=== PATIENT | female | born 1980 | race Caucasian/White ===

== ENCOUNTER 2018-10-25 13:25 | Day surgery (SDC) | payer OTHER ==
[2018-10-25] MEDS ORDERED: Xylocaine 1% Vial 30 ML PF IJ ONE (13:26)
[2018-10-25] MEDS ORDERED: Sodium Chloride 0.9(Preservative Free) 10 ML IJ ONE (13:26)
[2018-10-25] MEDS ORDERED: Marcaine 0.5% SDV 10 ML IJ ONE (13:26)
[2018-10-25] MEDS ORDERED: Ketamine HCl 50 MG/ML IJ ONE (13:26)
[2018-10-25] MEDS ORDERED: DIPRIVAN 200 MG/20 ML IV ONE (13:26)
[2018-10-25] MEDS ORDERED: LIDOCAINE HCL 2% 100 MG/5 ML IJ ONE (13:26)
[2018-10-25] MEDS ORDERED: Lactated Ringers 1,000 ML IV ONE (14:26)
--- NOTE | 2018-10-25 17:00 | XRAY ---
Indication: Right L4-S1 MARAL. Intraoperative fluoroscopy was provided for 32 seconds. 2 digital spot images submitted for interpretation demonstrates posterior needle tips projecting over the expected course of the right L4-L5 nerve roots. Small amount of contrast injected for needle tip placement. Correlate with intraoperative findings/report.
--- NOTE | 2018-10-25 17:04 | XRAY ---
32 seconds of fluoroscopy was used in surgery for right L4-L5 and L5-S1 MARAL.
== END 2018-10-25 15:58 | disposition home or self-care (01) ==
LOC: SDC-PAIN 13:25
PROVIDERS: ATTEND Psychiatry & Neurology Pain Medicine
DX: M54.16 Radiculopathy, lumbar region (principal); E06.3 Autoimmune thyroiditis; E78.5 Hyperlipidemia, unspecified; G47.00 Insomnia, unspecified; K21.9 Gastro-esophageal reflux disease without esophagitis; Z79.899 Other long term (current) drug therapy
CPT/HCPCS: 64483; 64484; 72020; 77003; J2001; J2704; Q9967

== ENCOUNTER 2019-08-04 12:05 | Emergency (ER) | payer OTHER ==
[2019-08-04 12:18] VITALS: O2SAT 98
--- NOTE | 2019-08-04 12:33 | ERPHSYRPT ---
- History of Present Illness Time Seen by Provider: 08/04/19 12:32 Source: patient Exam Limitations: no limitations Patient Subjective Stated Complaint: Pt has 0.5 cm wound to her right posterior calf with reddedned area measuring 4x5 cm, stated that she has had it for about a week but has really began to hurt for the past couple of days, pt has scarred wounds scattered over her arms and legs that she states are just old sores that scarred Triage Nursing Assessment: Pt walked into the ER, tachycardic, rates pain 8/10 on right leg, unsure how she got the wound but thinks it might be a spider bite Physician History: Pt has 0.5 cm wound to her right posterior calf with reddedned area measuring 4x5 cm, stated that she has had it for about a week but has really began to hurt for the past couple of days, pt has scarred wounds scattered over her arms and legs that she states are just old sores that scarred Timing/Duration: week(s) Location: extremities Associated Symptoms: denies symptoms Allergies/Adverse Reactions: Penicillins Allergy (Intermediate, Verified 08/04/19 12:18) Rash Home Medications: Esomeprazole Magnesium [Nexium] 1 tab PO QPM 09/27/17 [History] Metoprolol Tartrate 1 tab PO BID 09/27/17 [History] Quetiapine Fumarate [Seroquel Xr] 1 tab PO QHS 09/27/17 [History] Tizanidine HCl 4 mg [Zanaflex 4 MG] 3 tab PO QHS 09/27/17 [History] Ergocalciferol (Vitamin D2) [Vitamin D] 1 tab PO UD 09/30/17 [History] Levothyroxine Sodium [Tirosint] 200 mcg PO DAILY 08/04/19 [History] Liothyronine Sodium 5 mcg PO DAILY 08/04/19 [History] Hx Tetanus, Diphtheria Vaccination/Date Given: No - Review of Systems Constitutional: No Fever, No Chills Eyes: No Symptoms Ears, Nose, & Throat: No Symptoms Respiratory: No Cough, No Dyspnea Cardiac: No Chest Pain, No Edema, No Syncope Abdominal/Gastrointestinal: No Abdominal Pain, No Nausea, No Vomiting, No Diarrhea Genitourinary Symptoms: No Dysuria Musculoskeletal: No Back Pain, No Neck Pain Skin: Induration, Skin Lesions, No Rash Neurological: No Dizziness, No Focal Weakness, No Sensory Changes Psychological: No Symptoms Endocrine: No Symptoms All Other Systems: Reviewed and Negative - Past Medical History Pertinent Past Medical History: Yes Neurological History: Seizures ENT History: No Pertinent History Cardiac History: Arrhythmia Respiratory History: No Pertinent History Endocrine Medical History: Hypothyroidism, Other Musculoskeletal History: No Pertinent History GI Medical History: GERD, Gallbladder Disease History: No Pertinent History Psycho-Social History: Depression, Anxiety Female Reproductive Disorders: No Pertinent History Other Medical History: had a seizure when was on too much medications with seratonine, keri's - Past Surgical History Past Surgical History: Yes Neuro Surgical History: No Pertinent History Cardiac: No Pertinent History Respiratory: No Pertinent History Gastrointestinal: Cholecystectomy Genitourinary: No Pertinent History Musculoskeletal: Other Female Surgical History: Tubal Ligation Other Surgical History: pt has scoliosis - Social History Smoking Status: Current every day smoker Exposure to second hand smoke: Yes Drug Use: none Patient Lives Alone: No - Female History Hx Now: No (tubal) - Nursing Vital Signs Nursing Vital Signs: Initial Vital Signs Temperature 97.4 F 08/04/19 12:08 Pulse Rate 111 H 08/04/19 12:08 Blood Pressure 130/91 08/04/19 12:08 O2 Sat by Pulse Oximetry 98 08/04/19 12:08 Pain Scale Pain Intensity 8 - Physical Exam General Appearance: no apparent distress, alert Eye Exam: PERRL/EOMI, eyes nml inspection Ears, Nose, Throat Exam: normal ENT inspection, pharynx normal, moist mucous membranes Neck Exam: normal inspection, non-tender, supple, full range of motion Respiratory Exam: normal breath sounds, lungs clear, No respiratory distress Cardiovascular Exam: regular rate/rhythm, normal heart sounds Gastrointestinal/Abdomen Exam: soft, mass, No tenderness Back Exam: normal inspection, normal range of motion, No CVA tenderness, No vertebral tenderness Extremity Exam: normal inspection, normal range of motion Neurologic Exam: alert, oriented x 3, cooperative, normal mood/affect, sensation nml, No motor deficits Skin Exam: embolic lesions SpO2: 98 - Course Nursing assessment & vital signs reviewed: Yes Ordered Tests: Active Orders 24 hr Category Date Time Status BLOOD CULTURE Stat Lab 08/04/19 12:37 Received CBC W DIFF Stat Lab 08/04/19 12:30 Completed CMP Stat Lab 08/04/19 12:30 Completed Lactic Acid Stat Lab 08/04/19 12:16 Completed Manual Differential NC Stat Lab 08/04/19 12:30 Completed UA W/RFX UR CULTURE Stat Lab 08/04/19 12:16 Uncollected Medication Summary Discontinued Medications Generic Name Dose Route Start Last Admin Trade Name Freq PRN Reason Stop Dose Admin Ceftriaxone Sodium 1,000 mg 08/04/19 12:38 08/04/19 12:46 Rocephin 1000 Mg Inj IM 08/04/19 12:39 1,000 mg STAT ONE Administration Ceftriaxone Sodium Confirm 08/04/19 12:44 Rocephin 1000 Mg Inj Administered 08/04/19 12:45 Dose 1,000 mg .ROUTE .STK-MED ONE Lidocaine HCl Confirm 08/04/19 12:44 Xylocaine 1% Hcl 20 Ml Mdv Administered 08/04/19 12:45 Dose 2 ml .ROUTE .STK-MED ONE Lab/Rad Data: Laboratory Result Diagrams 08/04/19 12:30 08/04/19 12:30 Laboratory Results 08/04/19 08/04/19 08/04/19 Range/Units 12:30 12:30 12:16 WBC 13.8 H (4.0-10.5) K/mm3 RBC 4.14 (4.1-5.4) M/mm3 Hgb 12.3 (12.0-16.0) gm/dl Hct 37.4 (35-47) % MCV 90.3 (78-100) fl MCH 29.7 (26-32) pg MCHC 32.9 (32-36) g/dl RDW 13.7 (11.5-14.0) % Plt Count 324 (150-450) K/mm3 MPV 9.7 H (6-9.5) fl Segmented Neutrophils 72 H (36.0-66.0) % Lymphocytes (Manual) 22 L (24-44) % Monocytes (Manual) 6 (0.0-12.0) % Platelet Estimate NORMAL (NORMAL) RBC Morphology NORMAL Sodium 137 (137-145) mmol/L Potassium 3.3 L (3.5-5.1) mmol/L Chloride 104 (98-107) mmol/L Carbon Dioxide 23 (22-30) mmol/L Anion Gap 14.3 (5-15) MEQ/L BUN 5 L (7-17) mg/dL Creatinine 0.60 (0.52-1.04) mg/dL Estimated GFR > 60.0 ML/MIN Glucose 108 H (74-106) mg/dL Lactic Acid 1.3 (0.4-2.0) Calcium 9.5 (8.4-10.2) mg/dL Total Bilirubin 0.50 (0.2-1.3) mg/dL AST 23 (14-36) U/L ALT 19 (0-35) U/L Alkaline Phosphatase 104 (38-126) U/L Serum Total Protein 7.9 (6.3-8.2) g/dL Albumin 4.3 (3.5-5.0) g/dL - Progress Progress: unchanged Counseled pt/family regarding: lab results, diagnosis, need for follow-up - Departure Departure Disposition: Home Clinical Impression: Cellulitis and abscess of leg, except foot Condition: Stable Critical Care Time: No Referrals: NADEEM GUZMAN MD [Primary Care Provider] - Instructions: Cellulitis and Erysipelas (Skin Infections), Cellulitis (Skin Infection), Adult (DC) Additional Instructions: Discharge/Care Plan OLGA LIDIA RICO was seen on 08/04/19 in the Emergency Room. The patient was counseled regarding Diagnosis,Lab results, Imaging studies, need for follow up and when to return to the Emergency Room. Prescriptions given: Discharge Note I have spoken with the patient and/or caregivers. I have explained the patient' s condition, diagnosis and treatment plan based on the information available to me at this time. I have answered the patient's and/or caregiver's questions and addressed any concerns. The patient and/or caregivers have as good understanding of the patient's diagnosis, condition and treatment plan as can be expected at this point. The vital signs have been stable. The patient's condition is stable and appropriate for discharge from the emergency department. The patient will pursue further outpatient evaluation with the primary care physician or other designated or consulting physician as outlined in the discharge instructions. The patient and/or caregivers are agreeable to this plan of care and follow-up instructions have been explained in detail. The patient and/or caregivers have received these instruction. The patient/and or caregivers are aware that any significant change in condition or worsening of symptoms should prompt an immediate return to this or the closest emergency department or call 911. Prescriptions: Mupirocin [Bactroban OINTMENT] 0 gm TOP BID #30 tube Doxycycline Hyclate 100 mg PO BID #20 tablet
[2019-08-04] MEDS ORDERED: Rocephin 1000 MG INJ IM ONE (12:38)
[2019-08-04] MEDS ORDERED: Rocephin 1000 MG INJ ONE (12:44)
[2019-08-04] MEDS ORDERED: XYLOCAINE 1% HCL 20 ML MDV ONE (12:44)
[2019-08-04 12:51] LABS: Hematocrit 37.4 % (35-47); Hemoglobin 12.3 gm/dl (12.0-16.0); Mean Cell Volume 90.3 fl (78-100); Mean Corpuscular Hemoglobin 29.7 pg (26-32); Mean Corpuscular Hgb Concent. 32.9 g/dl (32-36); Mean Platelet Volume 9.7 fl (6-9.5); Platelet Count 324 K/mm3 (150-450); Red Blood Count 4.14 M/mm3 (4.1-5.4); Red Cell Distribution Width 13.7 % (11.5-14.0); White Blood Count 13.8 K/mm3 (4.0-10.5)
[2019-08-04 12:56] LABS: ALBUMIN 4.3 g/dL (3.5-5.0); ALKALINE PHOSPHATASE 104 U/L (38-126); ANION GAP 14.3 MEQ/L (5-15); BLOOD UREA NITROGEN 5 mg/dL (7-17); CHLORIDE 104 mmol/L (98-107); Calcium 9.5 mg/dL (8.4-10.2); Carbon Dioxide 23 mmol/L (22-30); Glucose 108 mg/dL (74-106); Potassium 3.3 mmol/L (3.5-5.1); SGOT/AST 23 U/L (14-36); SGPT/ALT 19 U/L (0-35); SODIUM 137 mmol/L (137-145); Total Protein 7.9 g/dL (6.3-8.2)
[2019-08-04 13:11] LABS: Lymphocytes 22 % (24-44); Monocyte 6 % (0.0-12.0); Neutrophils 72 % (36.0-66.0); Total Cells Counted 100
[2019-08-04 13:12] LABS: Platelet Estimate NORMAL (NORMAL)
[2019-08-04 13:26] VITALS: BP 135/85; PULSE 70
== END 2019-08-04 13:26 | disposition home or self-care (01) ==
LOC: ED 12:05
DX: L03.115 Cellulitis of right lower limb (principal); L02.415 Cutaneous abscess of right lower limb
CPT/HCPCS: 36415; 80053; 83605; 85025; 87040; 96372; 96374; 99284; J0696

== ENCOUNTER 2019-09-12 10:20 | Day surgery (SDC) | payer OTHER ==
[2019-09-12] MEDS ORDERED: Depo-Medrol 40 MG/ML IM ONE (10:21)
[2019-09-12] MEDS ORDERED: Sodium Chloride 0.9% 10 ML FLUSH Syringe IJ ONE (10:21)
[2019-09-12] MEDS ORDERED: Ketamine HCl 50 MG/ML ONE (10:40)
[2019-09-12] MEDS ORDERED: DIPRIVAN 200 MG/20 ML IV ONE (10:40)
--- NOTE | 2019-09-12 11:58 | XRAY ---
21 seconds of fluoroscopy was used in surgery for a right L4-L5 and L5-S1 transforaminal MARAL.
--- NOTE | 2019-09-12 12:10 | XRAY ---
Indication: Right L4-S1 transforaminal MARAL. Intraoperative fluoroscopy was provided for 21 seconds. 4 digital spot images submitted for interpretation demonstrate posterior needle tips projecting over the expected course of the right L4 and L5 nerve roots. Small amount of contrast injected for needle tip placement. Correlate with intraoperative findings/report.
[2019-09-12] MEDS ORDERED: Lactated Ringers 1,000 ML IV ONE (13:09)
== END 2019-09-12 11:30 | disposition home or self-care (01) ==
LOC: SDC-PAIN 10:20
PROVIDERS: ATTEND Psychiatry & Neurology Pain Medicine
DX: M54.16 Radiculopathy, lumbar region (principal); E06.3 Autoimmune thyroiditis; E78.5 Hyperlipidemia, unspecified; G47.00 Insomnia, unspecified; K21.9 Gastro-esophageal reflux disease without esophagitis; F41.8 Other specified anxiety disorders
CPT/HCPCS: 64483; 64484; 72100; 77003; 84703; J1030; J2704; Q9966

== ENCOUNTER 2020-07-17 11:16 | Inpatient (IN) | payer OTHER ==
[2020-07-17] MEDS ORDERED: TORAdol 30 mg Injection IV ONE (11:44)
[2020-07-17] MEDS ORDERED: Zofran 4 MG/2 ML VIAL IV ONE (11:44)
[2020-07-17] MEDS ORDERED: Sodium Chloride 0.9% 1000 ML 1,000 ML IV STA (12:07)
[2020-07-17] MEDS ORDERED: TORAdol 30 mg Injection ONE (12:08)
[2020-07-17] MEDS ORDERED: Sodium Chloride 0.9% 1000 ML 1,000 ML ONE (12:08)
[2020-07-17] MEDS ORDERED: Zofran 4 MG/2 ML VIAL ONE ×2 (12:08→19:01)
--- NOTE | 2020-07-17 12:17 | ERPHSYRPT ---
- History of Present Illness Historian: patient Patient Subjective Stated Complaint: "My side has been hurting since yesterday." Triage Nursing Assessment: . Physician History: 39 yo wf w LUQ/L flank pain x 2 days. Pain 10 on scale/sharp/nothing makes better or worse. She has had N/V wo hematemesis/diarrhea/melena/hematochezia/hematuria/cough/ST but has mild dysuria. Timing/Duration: day(s) (2 days) Activities at Onset: none Quality: sharpness Abdominal Pain Onset Location: LUQ, other Pain Radiation: flank, shoulder Severity of Pain-Max: severe Severity of Pain-Current: severe Modifying Factors: Improves With: nothing Associated Symptoms: denies symptoms, back, nausea, vomiting Previous symptoms: no prior history Allergies/Adverse Reactions: Penicillins Allergy (Intermediate, Verified 08/04/19 12:18) Rash Home Medications: Esomeprazole Magnesium [Nexium] 1 tab PO QPM 09/27/17 [History] Metoprolol Tartrate 1 tab PO BID 09/27/17 [History] Quetiapine Fumarate [Seroquel Xr] 1 tab PO QHS 09/27/17 [History] Tizanidine HCl 4 mg [Zanaflex 4 MG] 3 tab PO QHS 09/27/17 [History] Ergocalciferol (Vitamin D2) [Vitamin D] 1 tab PO UD 09/30/17 [History] Levothyroxine Sodium [Tirosint] 200 mcg PO DAILY 08/04/19 [History] Liothyronine Sodium 5 mcg PO DAILY 08/04/19 [History] Mupirocin [Bactroban OINTMENT] 0 gm TOP BID PRN 07/17/20 [History] Hx Tetanus, Diphtheria Vaccination/Date Given: Yes Hx Influenza Vaccination/Date Given: Yes Travel Risk - International Travel Have you traveled outside of the country in past 3 weeks: No - Coronavirus Screening Are you exhibiting any of the following symptoms?: No Symptoms: Vomiting/Diarrhea Close contact with a COVID-19 positive Pt in past 14-21 Days: No - Review of Systems Constitutional: No Symptoms Eyes: No Symptoms Ears, Nose, & Throat: No Symptoms Respiratory: No Symptoms Cardiac: No Symptoms Abdominal/Gastrointestinal: No Symptoms, Abdominal Pain Genitourinary Symptoms: No Symptoms, Dysuria Musculoskeletal: No Symptoms Skin: No Symptoms Neurological: No Symptoms Psychological: No Symptoms Endocrine: No Symptoms Hematologic/Lymphatic: No Symptoms Immunological/Allergic: No Symptoms - Past Medical History Pertinent Past Medical History: Yes Neurological History: Seizures ENT History: No Pertinent History Cardiac History: Arrhythmia Respiratory History: No Pertinent History Endocrine Medical History: Hypothyroidism, Other Musculoskeletal History: No Pertinent History GI Medical History: GERD, Gallbladder Disease History: No Pertinent History Psycho-Social History: Depression, Anxiety Female Reproductive Disorders: No Pertinent History Other Medical History: had a seizure when was on too much medications with seratonine, keri's - Past Surgical History Past Surgical History: Yes Neuro Surgical History: No Pertinent History Cardiac: No Pertinent History Respiratory: No Pertinent History Gastrointestinal: Cholecystectomy Genitourinary: No Pertinent History Musculoskeletal: Other Female Surgical History: Tubal Ligation Other Surgical History: pt has scoliosis - Social History Smoking Status: Current every day smoker Exposure to second hand smoke: Yes Drug Use: none Patient Lives Alone: No Significant Family History: no pertinent family hx - Female History Hx Now: No - Nursing Vital Signs Nursing Vital Signs: Initial Vital Signs Temperature 98.8 F 07/17/20 11:16 Pulse Rate 124 H 07/17/20 11:16 Respiratory Rate 16 07/17/20 11:16 Blood Pressure 146/94 07/17/20 11:16 O2 Sat by Pulse Oximetry 97 07/17/20 11:16 Pain Scale Pain Intensity 8 - Physical Exam General Appearance: no apparent distress Eye Exam: PERRL/EOMI, eyes nml inspection Ears, Nose, Throat Exam: normal ENT inspection, TMs normal, pharynx normal, moist mucous membranes Neck Exam: normal inspection, non-tender, supple, full range of motion, No meningismus, No mass, No Brudzinski, No Kernig's Respiratory Exam: normal breath sounds, lungs clear, airway intact, No respiratory distress Cardiovascular Exam: tachycardia, No murmur Gastrointestinal/Abdomen Exam: soft, normal bowel sounds, tenderness (LUQ w mild guarding) Back Exam: normal inspection, No CVA tenderness Extremity Exam: normal inspection, normal range of motion Neurologic Exam: alert, oriented x 3, cooperative, starch dumper II-XII nml as tested, normal mood/affect, nml cerebellar function, sensation nml, No motor deficits, No sensory deficit Skin Exam: normal color, warm, dry Lymphatic Exam: adenopathy SpO2 Interpretation: normal SpO2: 97 O2 Delivery: Room Air - Course Nursing assessment & vital signs reviewed: Yes - CT Exams Abdomen/Pelvis CT Interpretation: Discussed w/radiologist (Kathy-pancreatic stranding) Ordered Tests: Active Orders 24 hr Category Date Time Status IV Insertion STAT Care 07/17/20 12:03 Completed ABDOMEN AND PELVIS W CONTRAST [CT] Stat Exams 07/17/20 13:18 Completed AMYLASE AM.LAB Lab 07/19/20 04:00 Ordered AMYLASE Stat Lab 07/17/20 12:40 Completed CBC W DIFF Stat Lab 07/17/20 12:40 Completed CMP AM.LAB Lab 07/18/20 04:00 Ordered CMP Stat Lab 07/17/20 12:40 Completed LIPASE AM.LAB Lab 07/19/20 04:00 Ordered LIPASE Stat Lab 07/17/20 12:40 Completed Manual Differential NC Stat Lab 07/17/20 12:40 Completed UA W/RFX UR CULTURE Stat Lab 07/17/20 11:44 Completed Transfer Order Routine Transfer 07/17/20 Completed Medication Summary Generic Name Dose Route Start Last Admin Trade Name Freq PRN Reason Stop Dose Admin Ergocalciferol 50,000 unit 07/19/20 10:00 Vitamin D2 PO 08/18/20 09:59 TuSa@1000 ON LICENSE OF [facility] Fentanyl Citrate 50 mcg 07/17/20 17:25 07/17/20 17:28 Sublimaze 100 Mcg/2 Ml IV 07/22/20 17:24 50 mcg Q4H PRN PRN Administration SEVERE PAIN Sodium Chloride 1,000 mls @ 150 mls/hr 07/17/20 16:30 07/17/20 16:55 Sodium Chloride 0.9% 1000 Ml IV 08/16/20 16:29 150 mls/hr .Q6H40M KALA Administration Levothyroxine Sodium 200 mcg 07/18/20 10:00 Synthroid 100 Mcg PO 08/17/20 09:59 DAILY KALA Metoprolol Tartrate 25 mg 07/17/20 22:00 Lopressor 25mg Tab PO 08/16/20 21:59 BID ON LICENSE OF [facility] Mupirocin 1 gm 07/17/20 17:27 Bactroban Ointment TOP 08/16/20 17:26 BID PRN PRN REDNESS/IRRITATION Non-Formulary Medication 5 mcg 07/18/20 10:00 Liothyronine Sodium [Liothyronine Sodium] PO 08/17/20 09:59 DAILY ON LICENSE OF [facility] Pantoprazole Sodium 40 mg 07/17/20 22:00 Protonix 40mg Tablet PO 08/16/20 21:59 QPM KALA Quetiapine Fumarate 300 mg 07/17/20 22:00 Seroquel 100 Mg PO 08/16/20 21:59 QHS KALA Tizanidine HCl 12 mg 07/17/20 22:00 Zanaflex 4 Mg PO 08/16/20 21:59 QHS ON LICENSE OF [facility] Discontinued Medications Generic Name Dose Route Start Last Admin Trade Name Freq PRN Reason Stop Dose Admin Fentanyl Citrate 50 mcg 07/17/20 12:39 07/17/20 12:42 Sublimaze 100 Mcg/2 Ml IV 07/17/20 12:40 50 mcg STAT ONE Administration Fentanyl Citrate Confirm 07/17/20 12:41 Sublimaze 100 Mcg/2 Ml Administered 07/17/20 12:42 Dose 100 mcg .ROUTE .STK-MED ONE Hydromorphone HCl 1 mg 07/17/20 14:19 07/17/20 14:24 Hydromorphone 1 Mg/Ml Injection IV 07/17/20 14:20 1 mg STAT ONE Administration Hydromorphone HCl Confirm 07/17/20 14:23 Hydromorphone 1 Mg/Ml Injection Administered 07/17/20 14:24 Dose 1 mg .ROUTE .STK-MED ONE Hydromorphone HCl 1 mg 07/17/20 15:00 Hydromorphone 1 Mg/Ml Injection IV 07/22/20 14:59 Q2HPRN PRN PAIN Hydromorphone HCl 0.5 mg 07/17/20 16:29 07/17/20 16:51 Hydromorphone 1 Mg/Ml Injection IV 07/22/20 16:28 0.5 mg Q4H PRN PRN Administration PAIN Sodium Chloride 1,000 mls @ 999 mls/hr 07/17/20 12:07 07/17/20 13:18 Sodium Chloride 0.9% 1000 Ml IV 07/17/20 13:07 Infused .Q1H1M STA Infusion Sodium Chloride Confirm 07/17/20 12:08 Sodium Chloride 0.9% 1000 Ml Administered 07/17/20 12:09 Dose 1,000 mls @ ud .ROUTE .STK-MED ONE Sodium Chloride 1,000 mls @ 100 mls/hr 07/17/20 15:00 Sodium Chloride 0.9% 1000 Ml IV 08/16/20 14:59 .Q10H KALA Ketorolac Tromethamine 30 mg 07/17/20 11:44 07/17/20 12:12 Toradol 30 Mg Injection IV 07/17/20 11:45 30 mg STAT ONE Administration Ketorolac Tromethamine Confirm 07/17/20 12:08 Toradol 30 Mg Injection Administered 07/17/20 12:09 Dose 30 mg .ROUTE .STK-MED ONE Ondansetron HCl 4 mg 07/17/20 11:44 07/17/20 12:12 Zofran 4 Mg/2 Ml Vial IV 07/17/20 11:45 4 mg STAT ONE Administration Ondansetron HCl Confirm 07/17/20 12:08 Zofran 4 Mg/2 Ml Vial Administered 07/17/20 12:09 Dose 4 mg .ROUTE .STK-MED ONE Ondansetron HCl 4 mg 07/17/20 15:00 Zofran 4 Mg/2 Ml Vial IV 08/16/20 14:59 Q6H PRN PRN NAUSEA/VOMITING Lab/Rad Data: Laboratory Result Diagrams 07/17/20 12:40 07/17/20 12:40 Laboratory Results 07/17/20 07/17/20 07/17/20 Range/Units 12:40 12:40 11:44 WBC 20.5 H (4.0-10.5) K/mm3 RBC 4.10 (4.1-5.4) M/mm3 Hgb 12.9 (12.0-16.0) gm/dl Hct 37.6 (35-47) % MCV 91.7 (78-100) fl MCH 31.5 (26-32) pg MCHC 34.3 (32-36) g/dl RDW 14.9 H (11.5-14.0) % Plt Count 361 (150-450) K/mm3 MPV 10.6 (7.5-11.0) fl Segmented Neutrophils 80 H (36.0-66.0) % Band Neutrophils 4 H (0.0-2.0) % Lymphocytes (Manual) 6 L (24-44) % Monocytes (Manual) 10 (0.0-12.0) % Platelet Estimate NORMAL (NORMAL) RBC Morphology NORMAL Sodium 132 L (137-145) mmol/L Potassium 3.4 L (3.5-5.1) mmol/L Chloride 100 (98-107) mmol/L Carbon Dioxide 16 L* (22-30) mmol/L Anion Gap 18.8 H (5-15) MEQ/L BUN 11 (7-17) mg/dL Creatinine 0.55 (0.52-1.04) mg/dL Estimated GFR > 60.0 ML/MIN Glucose 122 H (74-106) mg/dL Calcium 8.9 (8.4-10.2) mg/dL Total Bilirubin 0.70 (0.2-1.3) mg/dL AST 24 (14-36) U/L ALT 19 (0-35) U/L Alkaline Phosphatase 143 H (38-126) U/L Serum Total Protein 8.6 H (6.3-8.2) g/dL Albumin 3.6 (3.5-5.0) g/dL Amylase 156 H (30-110) U/L Lipase 550 H (23-300) U/L Urine Color YELLOW (YELLOW) Urine Appearance TURBID (CLEAR) Urine pH 5.0 (5-6) Ur Specific [place] 1.023 (1.005-1.025) Urine Protein 100 (Negative) Urine Ketones SMALL (NEGATIVE) Urine Blood SMALL (0-5) Wilber/ul Urine Nitrite NEGATIVE (NEGATIVE) Urine Bilirubin NEGATIVE (NEGATIVE) Urine Urobilinogen NEGATIVE (0-1) mg/dL Ur Leukocyte Esterase NEGATIVE (NEGATIVE) Urine WBC (Auto) NONE (0-5) /HPF Urine RBC (Auto) NONE (0-2) /HPF U Epithel Cells (Auto) RARE (FEW) /HPF Urine Bacteria (Auto) RARE (NEGATIVE) /HPF Amorphous Crystals MANY (NEGATIVE) /HPF Urine Mucus (Auto) MANY (NEGATIVE) /HPF Urine Culture Reflexed NO (NO) Urine Glucose NEGATIVE (NEGATIVE) mg/dL - Progress Progress: improved Progress Note: 07/17/20 14:57 30mg IV Toradol/4mg IV Zofran wo improvement 50umg IV Fentanyl w mild improvement 1mg IV Dilaudid w improvement in pain Admit per Dr. Curran Discussed with : Glen Counseled pt/family regarding: lab results, diagnosis, rad results - Departure Departure Disposition: Observation Clinical Impression: Pancreatitis Qualifiers: Chronicity: acute Pancreatitis type: unspecified pancreatitis type Acute pancreatitis complication: no infection or necrosis Qualified Code(s): K85.90 - Acute pancreatitis without necrosis or infection, unspecified Condition: Stable Critical Care Time: No
[2020-07-17] MEDS ORDERED: SUBLIMAZE 100 MCG/2 ML IV ONE (12:39)
[2020-07-17] MEDS ORDERED: SUBLIMAZE 100 MCG/2 ML ONE (12:41)
[2020-07-17 13:04] LABS: Hematocrit 37.6 % (35-47); Hemoglobin 12.9 gm/dl (12.0-16.0); Mean Cell Volume 91.7 fl (78-100); Mean Corpuscular Hemoglobin 31.5 pg (26-32); Mean Corpuscular Hgb Concent. 34.3 g/dl (32-36); Mean Platelet Volume 10.6 fl (7.5-11.0); Platelet Count 361 K/mm3 (150-450); Red Cell Distribution Width 14.9 % (11.5-14.0); White Blood Count 20.5 K/mm3 (4.0-10.5)
[2020-07-17 13:11] LABS: ALBUMIN 3.6 g/dL (3.5-5.0); ALKALINE PHOSPHATASE 143 U/L (38-126); AMYLASE 156 U/L (30-110); ANION GAP 18.8 MEQ/L (5-15); BLOOD UREA NITROGEN 11 mg/dL (7-17); CHLORIDE 100 mmol/L (98-107); Calcium 8.9 mg/dL (8.4-10.2); Creatinine 1 0.55 mg/dL (0.52-1.04); EST GLOMERULAR FILTRATION RATE > 60.0 ML/MIN; Glucose 122 mg/dL (74-106); LIPASE 550 U/L (23-300); Potassium 3.4 mmol/L (3.5-5.1); SGOT/AST 24 U/L (14-36); SGPT/ALT 19 U/L (0-35); SODIUM 132 mmol/L (137-145); Total Protein 8.6 g/dL (6.3-8.2)
[2020-07-17 13:13] LABS: Carbon Dioxide 16 mmol/L (22-30)
[2020-07-17 13:45] LABS: Amourphous Crystal MANY /HPF (NEGATIVE); Appearance TURBID (CLEAR); Bacteria RARE /HPF (NEGATIVE); Bilirubin NEGATIVE (NEGATIVE); Blood SMALL Ery/ul (0-5); Epithelial Cells RARE /HPF (FEW); Glucose NEGATIVE (NEGATIVE); Ketones SMALL (NEGATIVE); Leukocyte Esterase NEGATIVE (NEGATIVE); Mucus MANY /HPF (NEGATIVE); Nitrite NEGATIVE (NEGATIVE); Protein,Urine Dip 100 (Negative); Specific Gravity 1.023 (1.005-1.025); Urobilinogen NEGATIVE mg/dL (0-1)
--- NOTE | 2020-07-17 14:12 | XRAY ---
Indication: Abdomen pain. Elevated pancreatic enzymes. Multiple contiguous axial images obtained through the abdomen and pelvis using 80 cc Isovue 370 contrast only. Comparison: None Lung bases demonstrates minimal bibasilar subsegmental atelectasis/scarring. No infiltrate or effusion. Heart is not enlarged. Noncontrasted stomach and bowel loops appear nonobstructed. Normal appendix. Body and tail of pancreas demonstrates moderate peripancreatic stranding favoring pancreatitis. Small free fluid along the left colic gutter. No walled off fluid collection or free air. Diffuse fatty liver with hepatomegaly measuring 25.3 cm. Also 12.9 cm splenomegaly. Previous cholecystectomy. Left ovary demonstrates a 3.3 cm cyst. Remaining adrenal glands, kidneys, ureters, bladder, uterus, and aorta appear unremarkable. Small subcentimeter periaortic nodes, none pathologically enlarged. Osseous structures intact. Impression: 1. CT features favoring pancreatitis with small fluid along left colic gutter. 2. Diffuse fatty hepatomegaly, splenomegaly, and 3.3 cm left ovary cyst.
[2020-07-17] MEDS ORDERED: Hydromorphone 1 mg/ml Injection IV ONE (14:19)
[2020-07-17] MEDS ORDERED: Hydromorphone 1 mg/ml Injection ONE (14:23)
[2020-07-17] MEDS ORDERED: Sodium Chloride 0.9% 1000 ML 1,000 ML IV SCH (15:00)
[2020-07-17] MEDS ORDERED: Zofran 4 MG/2 ML VIAL IV PRN (15:00)
[2020-07-17] MEDS ORDERED: Hydromorphone 1 mg/ml Injection IV PRN ×2 (15:00→16:29)
[2020-07-17 16:06] LABS: BAND 4 % (0.0-2.0); Lymphocytes 6 % (24-44); Monocyte 10 % (0.0-12.0); Neutrophils 80 % (36.0-66.0); Total Cells Counted 100
[2020-07-17 16:07] LABS: Platelet Estimate NORMAL (NORMAL)
--- NOTE | 2020-07-17 16:33 | PCM.HP ---
History of Present Illness - Chief Complaint Chief Complaint: abdominal pain for 3 days History of Present Illness: is a .39 yo wf w LUQ/L flank pain x 2 days. Pain 10 on scale/sharp/nothing makes better or worse. She has had N/V wo hematemesis/diarrhea/melena/hematochezia/hematuria/cough/ST but has mild dysuria. Timing/Duration: day(s) (2 days) Activities at Onset: none Quality: sharpness Abdominal Pain Onset Location: LUQ, other Pain Radiation: flank, shoulder Severity of Pain-Max: severe Severity of Pain-Current: severe Modifying Factors: Improves With: nothing Associated Symptoms: denies symptoms, back, nausea, vomiting Previous symptoms: no prior history - Review of Systems Constitutional: No Fever, No Chills Eyes: No Symptoms Ears, Nose, & Throat: No Symptoms Respiratory: No Cough, No Short Of Breath Cardiac: No Chest Pain, No Edema, No Syncope Abdominal/Gastrointestinal: No Abdominal Pain, No Nausea, No Vomiting, No Diarrhea Genitourinary Symptoms: No Dysuria Musculoskeletal: No Back Pain, No Neck Pain Skin: No Rash Neurological: No Dizziness, No Focal Weakness, No Sensory Changes Psychological: No Symptoms Endocrine: No Symptoms Hematologic/Lymphatic: No Symptoms Immunological/Allergic: No Symptoms Medications & Allergies Home Medications: Home Medication List Esomeprazole Magnesium [Nexium] 1 tab PO QPM 09/27/17 [History Confirmed 07/17/20] Metoprolol Tartrate 1 tab PO BID 09/27/17 [History Confirmed 07/17/20] Quetiapine Fumarate [Seroquel Xr] 1 tab PO QHS 09/27/17 [History Confirmed 07/17/20] Tizanidine HCl 4 mg [Zanaflex 4 MG] 3 tab PO QHS 09/27/17 [History Confirmed 07/17/20] Ergocalciferol (Vitamin D2) [Vitamin D] 1 tab PO UD 09/30/17 [History Confirmed 07/17/20] Levothyroxine Sodium [Tirosint] 200 mcg PO DAILY 08/04/19 [History Confirmed 07/17/20] Liothyronine Sodium 5 mcg PO DAILY 08/04/19 [History Confirmed 07/17/20] Mupirocin [Bactroban OINTMENT] 0 gm TOP BID PRN 07/17/20 [History Confirmed 07/17/20] Allergies/Adverse Reactions: Allergies Allergy/AdvReac Type Severity Reaction Status Date / Time Penicillins Allergy Intermediate Rash Verified 08/04/19 12:18 - Past Medical History Past Medical History: Yes Neurological History: Seizures ENT History: No Pertinent History Cardiac History: Arrhythmia Respiratory History: No Pertinent History Endocrine Medical History: Hypothyroidism, Other Musculoskelatal History: No Pertinent History GI Medical History: GERD, Gallbladder Disease History: No Pertinent History Pyscho-Social History: Depression, Anxiety Reproductive Disorders: No Pertinent History Comment: had a seizure when was on too much medications with seratonine, keri's - Female History Are you now?: No - Past Surgical History Past Surgical History: Yes Neuro Surgical History: No Pertinent History Cardiac History: No Pertinent History Respiratory Surgery: No Pertinent History GI Surgical History: Cholecystectomy Genitourinary Surgical Hx: No Pertinent History Musculskeletal Surgical Hx: Other Female Surgical History: Tubal Ligation Other Surgical History: pt has scoliosis - Social History Smoking Status: Current every day smoker Exposure to second hand smoke: Yes Alcohol: None Drug Use: none Significant Family History: no pertinent family hx - Physical Exam Vital Signs: Vital Signs - 24 hr Temp Pulse Resp BP Pulse Ox 07/17/20 14:59 97 07/17/20 14:21 106 H 20 150/80 95 07/17/20 13:00 107 H 18 139/89 96 07/17/20 12:16 112 H 16 152/86 96 07/17/20 11:16 98.8 F 124 H 16 146/94 97 General Appearance: no apparent distress, alert Neurologic Exam: alert, oriented x 3, cooperative, normal mood/affect, nml cerebellar function, nml station & gait, sensation nml, No motor deficits Eye Exam: PERRL/EOMI, eyes nml inspection Ears, Nose, Throat Exam: normal ENT inspection, TMs normal, pharynx normal, moist mucous membranes Neck Exam: normal inspection, non-tender, supple, full range of motion Respiratory Exam: normal breath sounds, lungs clear, No respiratory distress Cardiovascular Exam: regular rate/rhythm, normal heart sounds, normal peripheral pulses Gastrointestinal/Abdomen Exam: soft, normal bowel sounds, No tenderness, No mass Back Exam: normal inspection, normal range of motion, No CVA tenderness, No vertebral tenderness Extremity Exam: normal inspection, normal range of motion, pelvis stable Skin Exam: normal color, warm, dry, No rash Lymphatic Exam: No adenopathy Results - Labs Lab/Micro Results: Lab Results-Last 24 Hours 07/17/20 07/17/20 07/17/20 Range/Units 11:44 12:40 12:40 WBC 20.5 H (4.0-10.5) K/mm3 RBC 4.10 (4.1-5.4) M/mm3 Hgb 12.9 (12.0-16.0) gm/dl Hct 37.6 (35-47) % MCV 91.7 (78-100) fl MCH 31.5 (26-32) pg MCHC 34.3 (32-36) g/dl RDW 14.9 H (11.5-14.0) % Plt Count 361 (150-450) K/mm3 MPV 10.6 (7.5-11.0) fl Segmented Neutrophils 80 H (36.0-66.0) % Band Neutrophils 4 H (0.0-2.0) % Lymphocytes (Manual) 6 L (24-44) % Monocytes (Manual) 10 (0.0-12.0) % Platelet Estimate NORMAL (NORMAL) RBC Morphology NORMAL Sodium 132 L (137-145) mmol/L Potassium 3.4 L (3.5-5.1) mmol/L Chloride 100 (98-107) mmol/L Carbon Dioxide 16 L* (22-30) mmol/L Anion Gap 18.8 H (5-15) MEQ/L BUN 11 (7-17) mg/dL Creatinine 0.55 (0.52-1.04) mg/dL Estimated GFR > 60.0 ML/MIN Glucose 122 H (74-106) mg/dL Calcium 8.9 (8.4-10.2) mg/dL Total Bilirubin 0.70 (0.2-1.3) mg/dL AST 24 (14-36) U/L ALT 19 (0-35) U/L Alkaline Phosphatase 143 H (38-126) U/L Serum Total Protein 8.6 H (6.3-8.2) g/dL Albumin 3.6 (3.5-5.0) g/dL Amylase 156 H (30-110) U/L Lipase 550 H (23-300) U/L Urine Color YELLOW (YELLOW) Urine Appearance TURBID (CLEAR) Urine pH 5.0 (5-6) Ur Specific [place] 1.023 (1.005-1.025) Urine Protein 100 (Negative) Urine Ketones SMALL (NEGATIVE) Urine Blood SMALL (0-5) Wilber/ul Urine Nitrite NEGATIVE (NEGATIVE) Urine Bilirubin NEGATIVE (NEGATIVE) Urine Urobilinogen NEGATIVE (0-1) mg/dL Ur Leukocyte Esterase NEGATIVE (NEGATIVE) Urine WBC (Auto) NONE (0-5) /HPF Urine RBC (Auto) NONE (0-2) /HPF U Epithel Cells (Auto) RARE (FEW) /HPF Urine Bacteria (Auto) RARE (NEGATIVE) /HPF Amorphous Crystals MANY (NEGATIVE) /HPF Urine Mucus (Auto) MANY (NEGATIVE) /HPF Urine Culture Reflexed NO (NO) Urine Glucose NEGATIVE (NEGATIVE) mg/dL - Radiology Impressions Radiology Exams & Impressions: Radiology Procedures Category Date Time Status ABDOMEN AND PELVIS W CONTRAST [CT] Stat Exams 07/17/20 13:18 Completed Assessment/Plan (1) Pancreatitis Current Visit: Yes Status: Acute Qualifiers: Chronicity: acute Pancreatitis type: unspecified pancreatitis type Acute pancreatitis complication: no infection or necrosis Qualified Code(s): K85.90 - Acute pancreatitis without necrosis or infection, unspecified Assessment & Plan: Chief Complaint Diagnosis Pancreatitis Allergies Allergy/AdvReac Type Severity Reaction Status Date / Time Penicillins Allergy Intermediate Rash Verified 08/04/19 12:18 Vital Signs (Last 24 hours) Temp Pulse Resp BP Pulse Ox 07/17/20 14:59 97 07/17/20 14:21 106 H 20 150/80 95 07/17/20 13:00 107 H 18 139/89 96 07/17/20 12:16 112 H 16 152/86 96 07/17/20 11:16 98.8 F 124 H 16 146/94 97 Home Medications Medication Instructions Recorded Confirmed Last Taken Type Mupirocin [Bactroban 0 gm TOP BID PRN 07/17/20 07/17/20 Unknown History OINTMENT] Current Medications Generic Name Dose Route Start Last Admin Trade Name Freq PRN Reason Stop Dose Admin Hydromorphone HCl 0.5 mg 07/17/20 16:29 Hydromorphone 1 Mg/Ml Injection IV 07/22/20 16:28 Q4H PRN PRN PAIN Sodium Chloride 1,000 mls @ 150 mls/hr 07/17/20 16:30 Sodium Chloride 0.9% 1000 Ml IV 08/16/20 16:29 .Q6H40M KALA Discontinued Medications Generic Name Dose Route Start Last Admin Trade Name Freq PRN Reason Stop Dose Admin Fentanyl Citrate 50 mcg 07/17/20 12:39 07/17/20 12:42 Sublimaze 100 Mcg/2 Ml IV 07/17/20 12:40 50 mcg STAT ONE Administration Fentanyl Citrate Confirm 07/17/20 12:41 Sublimaze 100 Mcg/2 Ml Administered 07/17/20 12:42 Dose 100 mcg .ROUTE .STK-MED ONE Hydromorphone HCl 1 mg 07/17/20 14:19 07/17/20 14:24 Hydromorphone 1 Mg/Ml Injection IV 07/17/20 14:20 1 mg STAT ONE Administration Hydromorphone HCl Confirm 07/17/20 14:23 Hydromorphone 1 Mg/Ml Injection Administered 07/17/20 14:24 Dose 1 mg .ROUTE .STK-MED ONE Hydromorphone HCl 1 mg 07/17/20 15:00 Hydromorphone 1 Mg/Ml Injection IV 07/22/20 14:59 Q2HPRN PRN PAIN Sodium Chloride 1,000 mls @ 999 mls/hr 07/17/20 12:07 07/17/20 13:18 Sodium Chloride 0.9% 1000 Ml IV 07/17/20 13:07 Infused .Q1H1M STA Infusion Sodium Chloride Confirm 07/17/20 12:08 Sodium Chloride 0.9% 1000 Ml Administered 07/17/20 12:09 Dose 1,000 mls @ ud .ROUTE .STK-MED ONE Sodium Chloride 1,000 mls @ 100 mls/hr 07/17/20 15:00 Sodium Chloride 0.9% 1000 Ml IV 08/16/20 14:59 .Q10H KALA Ketorolac Tromethamine 30 mg 07/17/20 11:44 07/17/20 12:12 Toradol 30 Mg Injection IV 07/17/20 11:45 30 mg STAT ONE Administration Ketorolac Tromethamine Confirm 07/17/20 12:08 Toradol 30 Mg Injection Administered 07/17/20 12:09 Dose 30 mg .ROUTE .STK-MED ONE Ondansetron HCl 4 mg 07/17/20 11:44 07/17/20 12:12 Zofran 4 Mg/2 Ml Vial IV 07/17/20 11:45 4 mg STAT ONE Administration Ondansetron HCl Confirm 07/17/20 12:08 Zofran 4 Mg/2 Ml Vial Administered 07/17/20 12:09 Dose 4 mg .ROUTE .STK-MED ONE Ondansetron HCl 4 mg 07/17/20 15:00 Zofran 4 Mg/2 Ml Vial IV 08/16/20 14:59 Q6H PRN PRN NAUSEA/VOMITING Intake & Output (Last 24 hours) 07/15/20 07/16/20 07/17/20 07/18/20 11:59 11:59 11:59 11:59 Weight 91.6 kg Laboratory Results (Last 24 hours) 07/17/20 07/17/20 07/17/20 12:40 12:40 11:44 WBC 20.5 H RBC 4.10 Hgb 12.9 Hct 37.6 MCV 91.7 MCH 31.5 MCHC 34.3 RDW 14.9 H Plt Count 361 MPV 10.6 Segmented Neutrophils 80 H Band Neutrophils 4 H Lymphocytes (Manual) 6 L Monocytes (Manual) 10 Platelet Estimate NORMAL RBC Morphology NORMAL Sodium 132 L Potassium 3.4 L Chloride 100 Carbon Dioxide 16 L* Anion Gap 18.8 H BUN 11 Creatinine 0.55 Estimated GFR > 60.0 Glucose 122 H Calcium 8.9 Total Bilirubin 0.70 AST 24 ALT 19 Alkaline Phosphatase 143 H Serum Total Protein 8.6 H Albumin 3.6 Amylase 156 H Lipase 550 H Urine Color YELLOW Urine Appearance TURBID Urine pH 5.0 Ur Specific [place] 1.023 Urine Protein 100 Urine Ketones SMALL Urine Blood SMALL Urine Nitrite NEGATIVE Urine Bilirubin NEGATIVE Urine Urobilinogen NEGATIVE Ur Leukocyte Esterase NEGATIVE Urine WBC (Auto) NONE Urine RBC (Auto) NONE U Epithel Cells (Auto) RARE Urine Bacteria (Auto) RARE Amorphous Crystals MANY Urine Mucus (Auto) MANY Urine Culture Reflexed NO Urine Glucose NEGATIVE Orders (Last 24 hours) Category Date Time Status IV Insertion STAT Care 07/17/20 12:03 Completed ABDOMEN AND PELVIS W CONTRAST [CT] Stat Exams 07/17/20 13:18 Completed AMYLASE AM.LAB Lab 07/19/20 04:00 Ordered AMYLASE Stat Lab 07/17/20 12:40 Completed CBC W DIFF Stat Lab 07/17/20 12:40 Completed CMP AM.LAB Lab 07/18/20 04:00 Ordered CMP Stat Lab 07/17/20 12:40 Completed LIPASE AM.LAB Lab 07/19/20 04:00 Ordered LIPASE Stat Lab 07/17/20 12:40 Completed Manual Differential NC Stat Lab 07/17/20 12:40 Completed UA W/RFX UR CULTURE Stat Lab 07/17/20 11:44 Completed Fentanyl Citrate 100 Mcg/2 ml* [Sublimaze 100 Mcg/2 ml* Med 07/17/20 12:41 Discontinued ] 100 mcg .ROUTE .STK-MED ONE Fentanyl Citrate 100 Mcg/2 ml* [Sublimaze 100 Mcg/2 ml* Med 07/17/20 12:39 Discontinued ] 50 mcg IV STAT ONE Hydromorphone 1 mg/1Ml Inj [Hydromorphone 1 mg/ml Med 07/17/20 16:29 Active Injection] 0.5 mg IV Q4H PRN PRN Hydromorphone 1 mg/1Ml Inj [Hydromorphone 1 mg/ml Med 07/17/20 14:23 Discontinued Injection] 1 mg .ROUTE .STK-MED ONE Hydromorphone 1 mg/1Ml Inj [Hydromorphone 1 mg/ml Med 07/17/20 15:00 Discontinued Injection] 1 mg IV Q2HPRN PRN Hydromorphone 1 mg/1Ml Inj [Hydromorphone 1 mg/ml Med 07/17/20 14:19 Discontinued Injection] 1 mg IV STAT ONE KETOROLAC trometh 30 mg Inj [TORAdol 30 mg Injection Med 07/17/20 12:08 Discontinued ] 30 mg .ROUTE .STK-MED ONE KETOROLAC trometh 30 mg Inj [TORAdol 30 mg Injection Med 07/17/20 11:44 Discontinued ] 30 mg IV STAT ONE NaCl 0.9% 1000 ml [Sodium Chloride 0.9% 1000 ML] 1,000 Med 07/17/20 12:08 Discontinued ml .ROUTE UD NaCl 0.9% 1000 ml [Sodium Chloride 0.9% 1000 ML] 1,000 Med 07/17/20 15:00 Discontinued ml IV 100 mls/hr NaCl 0.9% 1000 ml [Sodium Chloride 0.9% 1000 ML] 1,000 Med 07/17/20 16:30 Ordered ml IV 150 mls/hr NaCl 0.9% 1000 ml [Sodium Chloride 0.9% 1000 ML] 1,000 Med 07/17/20 12:07 Discontinued ml IV 999 mls/hr Ondansetron HCl 4 mg/2 ml [Zofran 4 MG/2 ML VIAL] Med 07/17/20 12:08 Discontinued 4 mg .ROUTE .STK-MED ONE Ondansetron HCl 4 mg/2 ml [Zofran 4 MG/2 ML VIAL] Med 07/17/20 15:00 Discontinued 4 mg IV Q6H PRN PRN Ondansetron HCl 4 mg/2 ml [Zofran 4 MG/2 ML VIAL] Med 07/17/20 11:44 Discontinued 4 mg IV STAT ONE Transfer Order Routine Transfer 07/17/20 Completed Code(s): K85.90 - ACUTE PANCREATITIS WITHOUT NECROSIS OR INFECTION, UNSP
[2020-07-17] MEDS: Sodium Chloride 0.9% 1000 ML 1,000 ML IV SCH ×2 (16:55→23:44)
[2020-07-17] MEDS ORDERED: SUBLIMAZE 100 MCG/2 ML IV PRN (17:25)
[2020-07-17] MEDS ORDERED: Bactroban OINTMENT TOP PRN (17:27)
[2020-07-17] MEDS ORDERED: MEDICATION INTERVENTION MC SCH (17:45)
[2020-07-17] MEDS ORDERED: PHARMACY DOSING REQUIRED: DILAUDID PCA IV STA (18:13)
[2020-07-17] MEDS ORDERED: DILAUDID 1 MG/1ML PCA IV PRN (18:35)
[2020-07-17] MEDS: Zofran 4 MG/2 ML VIAL IV PRN (19:02)
[2020-07-17] MEDS: Protonix 40MG Tablet PO SCH (21:30)
[2020-07-17] MEDS: Lopressor 25MG Tab PO SCH (21:30)
[2020-07-17] MEDS: Zanaflex 4 MG PO SCH (21:32)
[2020-07-17] MEDS: Seroquel 100 MG PO SCH (21:32)
[2020-07-17] MEDS ORDERED: QUETIAPINE FUMARATE PO SCH (22:00)
[2020-07-17] MEDS ORDERED: ESOMEPRAZOLE MAGNESIUM PO SCH (22:00)
[2020-07-18] MEDS: Zofran 4 MG/2 ML VIAL IV PRN ×4 (00:38→14:42)
[2020-07-18] MEDS: Sodium Chloride 0.9% 1000 ML 1,000 ML IV SCH ×3 (05:54→19:59)
[2020-07-18 05:58] LABS: ALBUMIN 3.4 g/dL (3.5-5.0); ALKALINE PHOSPHATASE 115 U/L (38-126); ANION GAP 11.8 MEQ/L (5-15); BLOOD UREA NITROGEN 9 mg/dL (7-17); CHLORIDE 105 mmol/L (98-107); Calcium 7.6 mg/dL (8.4-10.2); Carbon Dioxide 20 mmol/L (22-30); Creatinine 1 0.53 mg/dL (0.52-1.04); EST GLOMERULAR FILTRATION RATE > 60.0 ML/MIN; Glucose 115 mg/dL (74-106); SGOT/AST 23 U/L (14-36); SGPT/ALT 12 U/L (0-35); SODIUM 133 mmol/L (137-145); Total Protein 7.2 g/dL (6.3-8.2)
[2020-07-18 07:59] LABS: Hematocrit 34.1 % (35-47); Hemoglobin 11.2 gm/dl (12.0-16.0); Mean Cell Volume 93.2 fl (78-100); Mean Corpuscular Hemoglobin 30.6 pg (26-32); Mean Corpuscular Hgb Concent. 32.8 g/dl (32-36); Mean Platelet Volume 10.5 fl (7.5-11.0); Platelet Count 302 K/mm3 (150-450); Red Blood Count 3.66 M/mm3 (4.1-5.4); Red Cell Distribution Width 15.1 % (11.5-14.0); White Blood Count 21.2 K/mm3 (4.0-10.5)
[2020-07-18] MEDS: POTASSIUM CHLORIDE 20 mEq IN WATER 100ML 20 MEQ/100 ML BAG IV SCH ×2 (07:59→12:09)
[2020-07-18 08:57] LABS: BAND 14 % (0.0-2.0); Lymphocytes 10 % (24-44); Monocyte 5 % (0.0-12.0); Neutrophils 71 % (36.0-66.0); Total Cells Counted 100
[2020-07-18 08:58] LABS: ANISOCYTOSIS 1+; Platelet Estimate NORMAL (NORMAL); Polychromasia RARE
[2020-07-18 09:00] LABS: Absolute Neutrophil Ct (ANC) 18.05 (1.4-6.9)
[2020-07-18] MEDS ORDERED: LEVOTHYROXINE SODIUM 200 MCG PO SCH (10:00)
[2020-07-18] MEDS ORDERED: LIOTHYRONINE SODIUM 5 MCG PO SCH (10:00)
[2020-07-18] MEDS: SYNTHROID 100 MCG PO SCH (10:31)
[2020-07-18] MEDS: Lopressor 25MG Tab PO SCH ×2 (10:32→22:18)
--- NOTE | 2020-07-18 11:32 | PCM.NOTE ---
Date and Time: 07/18/20 1131 Subjective Assessment: c/o abdominal pain - Review of Systems Constitutional: No Fever, No Chills Eyes: No Symptoms Ears, Nose, & Throat: No Symptoms Respiratory: No Cough, No Short Of Breath Cardiac: No Chest Pain, No Edema, No Syncope Abdominal/Gastrointestinal: Abdominal Pain, Nausea, Vomiting, No Diarrhea Genitourinary Symptoms: No Dysuria Musculoskeletal: No Back Pain, No Neck Pain Skin: No Rash Neurological: No Dizziness, No Focal Weakness, No Sensory Changes Psychological: No Symptoms Endocrine: No Symptoms Hematologic/Lymphatic: No Symptoms Immunological/Allergic: No Symptoms Objective Exam General Appearance: no apparent distress, alert Neurologic Exam: alert, oriented x 3, cooperative, normal mood/affect, nml cerebellar function, sensation nml, No motor deficits Skin Exam: normal color, warm, dry Eye Exam: PERRL, EOMI, eyes nml inspection Ears, Nose, Throat Exam: normal ENT inspection, pharynx normal, moist mucous membranes Neck Exam: normal inspection, non-tender, supple, full range of motion Respiratory Exam: normal breath sounds, lungs clear, No respiratory distress Cardiovascular Exam: regular rate/rhythm, normal heart sounds Gastrointestinal/Abdomen Exam: soft, tenderness, No mass Extremity Exam: normal inspection, normal range of motion Back Exam: normal inspection, normal range of motion, No CVA tenderness, No vertebral tenderness Pelvic Exam: deferred Rectal Exam: deferred OBJECTIVE DATA Vital Signs: Vital Signs - 24 hr Temp Pulse Resp BP Pulse Ox 07/18/20 11:00 94 L 07/18/20 10:00 88 L 07/18/20 08:56 98 07/18/20 08:00 98 07/18/20 07:45 96.7 F 112 H 18 120/56 95 07/18/20 07:00 97 07/18/20 06:31 96 07/18/20 06:00 20 96 07/18/20 05:27 92 L 07/18/20 05:00 96 07/18/20 04:00 98.3 F 111 H 22 130/66 94 L 07/18/20 03:00 96 07/18/20 02:43 96 07/18/20 02:00 93 L 07/18/20 01:00 96 07/18/20 00:00 98.2 F 108 H 20 137/71 94 L 07/17/20 23:51 96 07/17/20 23:05 96 07/17/20 22:43 98 07/17/20 20:00 98.1 F 111 H 22 133/63 97 07/17/20 19:35 96 07/17/20 18:43 97 07/17/20 17:40 97 07/17/20 17:07 98 F 112 H 20 143/74 96 07/17/20 16:55 20 07/17/20 16:43 98 F 112 H 20 143/74 96 07/17/20 16:40 98 F 112 H 20 143/74 96 07/17/20 14:21 106 H 20 150/80 95 07/17/20 13:00 107 H 18 139/89 96 07/17/20 12:16 112 H 16 152/86 96 Pain Assessment - Last Documented Pain Intensity 5 Pain Scale Used 0-10 Pain Scale Intake and Output: Intake & Output 07/15/20 07/16/20 07/17/20 07/18/20 11:59 11:59 11:59 11:59 Intake Total 2200 Output Total 1000 Balance 1200 Weight 91.6 kg 92.4 kg Lab Results: Lab Results-Last 24 Hours 07/17/20 07/17/20 07/17/20 Range/Units 11:44 12:40 12:40 WBC 20.5 H (4.0-10.5) K/mm3 RBC 4.10 (4.1-5.4) M/mm3 Hgb 12.9 (12.0-16.0) gm/dl Hct 37.6 (35-47) % MCV 91.7 (78-100) fl MCH 31.5 (26-32) pg MCHC 34.3 (32-36) g/dl RDW 14.9 H (11.5-14.0) % Plt Count 361 (150-450) K/mm3 MPV 10.6 (7.5-11.0) fl Absolute Granulocytes (1.4-6.9) Segmented Neutrophils 80 H (36.0-66.0) % Band Neutrophils 4 H (0.0-2.0) % Lymphocytes (Manual) 6 L (24-44) % Monocytes (Manual) 10 (0.0-12.0) % Platelet Estimate NORMAL (NORMAL) RBC Morphology NORMAL Polychromasia Anisocytosis D-Dimer (215-500) ng/mL Sodium 132 L (137-145) mmol/L Potassium 3.4 L (3.5-5.1) mmol/L Chloride 100 (98-107) mmol/L Carbon Dioxide 16 L* (22-30) mmol/L Anion Gap 18.8 H (5-15) MEQ/L BUN 11 (7-17) mg/dL Creatinine 0.55 (0.52-1.04) mg/dL Estimated GFR > 60.0 ML/MIN Glucose 122 H (74-106) mg/dL Calcium 8.9 (8.4-10.2) mg/dL Total Bilirubin 0.70 (0.2-1.3) mg/dL AST 24 (14-36) U/L ALT 19 (0-35) U/L Alkaline Phosphatase 143 H (38-126) U/L Serum Total Protein 8.6 H (6.3-8.2) g/dL Albumin 3.6 (3.5-5.0) g/dL Amylase 156 H (30-110) U/L Lipase 550 H (23-300) U/L Urine Color YELLOW (YELLOW) Urine Appearance TURBID (CLEAR) Urine pH 5.0 (5-6) Ur Specific [place] 1.023 (1.005-1.025) Urine Protein 100 (Negative) Urine Ketones SMALL (NEGATIVE) Urine Blood SMALL (0-5) Wilber/ul Urine Nitrite NEGATIVE (NEGATIVE) Urine Bilirubin NEGATIVE (NEGATIVE) Urine Urobilinogen NEGATIVE (0-1) mg/dL Ur Leukocyte Esterase NEGATIVE (NEGATIVE) Urine WBC (Auto) NONE (0-5) /HPF Urine RBC (Auto) NONE (0-2) /HPF U Epithel Cells (Auto) RARE (FEW) /HPF Urine Bacteria (Auto) RARE (NEGATIVE) /HPF Amorphous Crystals MANY (NEGATIVE) /HPF Urine Mucus (Auto) MANY (NEGATIVE) /HPF Urine Culture Reflexed NO (NO) Urine Glucose NEGATIVE (NEGATIVE) mg/dL SARS-CoV-2 (PCR) (NEGATIVE) 07/18/20 07/18/20 07/18/20 Range/Units 04:15 04:47 05:00 WBC 21.2 H (4.0-10.5) K/mm3 RBC 3.66 L (4.1-5.4) M/mm3 Hgb 11.2 L (12.0-16.0) gm/dl Hct 34.1 L (35-47) % MCV 93.2 (78-100) fl MCH 30.6 (26-32) pg MCHC 32.8 (32-36) g/dl RDW 15.1 H (11.5-14.0) % Plt Count 302 (150-450) K/mm3 MPV 10.5 (7.5-11.0) fl Absolute Granulocytes 18.05 H (1.4-6.9) Segmented Neutrophils 71 H (36.0-66.0) % Band Neutrophils 14 H (0.0-2.0) % Lymphocytes (Manual) 10 L (24-44) % Monocytes (Manual) 5 (0.0-12.0) % Platelet Estimate NORMAL (NORMAL) RBC Morphology ABNORMAL Polychromasia RARE Anisocytosis 1+ D-Dimer 838 H* (215-500) ng/mL Sodium 133 L (137-145) mmol/L Potassium 3.0 L (3.5-5.1) mmol/L Chloride 105 (98-107) mmol/L Carbon Dioxide 20 L (22-30) mmol/L Anion Gap 11.8 (5-15) MEQ/L BUN 9 (7-17) mg/dL Creatinine 0.53 (0.52-1.04) mg/dL Estimated GFR > 60.0 ML/MIN Glucose 115 H (74-106) mg/dL Calcium 7.6 L (8.4-10.2) mg/dL Total Bilirubin 0.70 (0.2-1.3) mg/dL AST 23 (14-36) U/L ALT 12 (0-35) U/L Alkaline Phosphatase 115 (38-126) U/L Serum Total Protein 7.2 (6.3-8.2) g/dL Albumin 3.4 L (3.5-5.0) g/dL Amylase (30-110) U/L Lipase (23-300) U/L Urine Color (YELLOW) Urine Appearance (CLEAR) Urine pH (5-6) Ur Specific [place] (1.005-1.025) Urine Protein (Negative) Urine Ketones (NEGATIVE) Urine Blood (0-5) Wilber/ul Urine Nitrite (NEGATIVE) Urine Bilirubin (NEGATIVE) Urine Urobilinogen (0-1) mg/dL Ur Leukocyte Esterase (NEGATIVE) Urine WBC (Auto) (0-5) /HPF Urine RBC (Auto) (0-2) /HPF U Epithel Cells (Auto) (FEW) /HPF Urine Bacteria (Auto) (NEGATIVE) /HPF Amorphous Crystals (NEGATIVE) /HPF Urine Mucus (Auto) (NEGATIVE) /HPF Urine Culture Reflexed (NO) Urine Glucose (NEGATIVE) mg/dL SARS-CoV-2 (PCR) (NEGATIVE) 07/18/20 Range/Units 10:17 WBC (4.0-10.5) K/mm3 RBC (4.1-5.4) M/mm3 Hgb (12.0-16.0) gm/dl Hct (35-47) % MCV (78-100) fl MCH (26-32) pg MCHC (32-36) g/dl RDW (11.5-14.0) % Plt Count (150-450) K/mm3 MPV (7.5-11.0) fl Absolute Granulocytes (1.4-6.9) Segmented Neutrophils (36.0-66.0) % Band Neutrophils (0.0-2.0) % Lymphocytes (Manual) (24-44) % Monocytes (Manual) (0.0-12.0) % Platelet Estimate (NORMAL) RBC Morphology Polychromasia Anisocytosis D-Dimer (215-500) ng/mL Sodium (137-145) mmol/L Potassium (3.5-5.1) mmol/L Chloride (98-107) mmol/L Carbon Dioxide (22-30) mmol/L Anion Gap (5-15) MEQ/L BUN (7-17) mg/dL Creatinine (0.52-1.04) mg/dL Estimated GFR ML/MIN Glucose (74-106) mg/dL Calcium (8.4-10.2) mg/dL Total Bilirubin (0.2-1.3) mg/dL AST (14-36) U/L ALT (0-35) U/L Alkaline Phosphatase (38-126) U/L Serum Total Protein (6.3-8.2) g/dL Albumin (3.5-5.0) g/dL Amylase (30-110) U/L Lipase (23-300) U/L Urine Color (YELLOW) Urine Appearance (CLEAR) Urine pH (5-6) Ur Specific [place] (1.005-1.025) Urine Protein (Negative) Urine Ketones (NEGATIVE) Urine Blood (0-5) Wilber/ul Urine Nitrite (NEGATIVE) Urine Bilirubin (NEGATIVE) Urine Urobilinogen (0-1) mg/dL Ur Leukocyte Esterase (NEGATIVE) Urine WBC (Auto) (0-5) /HPF Urine RBC (Auto) (0-2) /HPF U Epithel Cells (Auto) (FEW) /HPF Urine Bacteria (Auto) (NEGATIVE) /HPF Amorphous Crystals (NEGATIVE) /HPF Urine Mucus (Auto) (NEGATIVE) /HPF Urine Culture Reflexed (NO) Urine Glucose (NEGATIVE) mg/dL SARS-CoV-2 (PCR) NEGATIVE (NEGATIVE) Radiology Exams: Radiology Procedures Category Date Time Status ABDOMEN AND PELVIS W CONTRAST [CT] Stat Exams 07/17/20 13:18 Completed Assessment/Plan (1) Pancreatitis Current Visit: Yes Status: Acute Qualifiers: Chronicity: acute Pancreatitis type: unspecified pancreatitis type Acute pancreatitis complication: no infection or necrosis Qualified Code(s): K85.90 - Acute pancreatitis without necrosis or infection, unspecified Assessment & Plan: Chief Complaint Diagnosis pancreatitis Allergies Allergy/AdvReac Type Severity Reaction Status Date / Time Penicillins Allergy Intermediate Rash Verified 08/04/19 12:18 Vital Signs (Last 24 hours) Temp Pulse Resp BP Pulse Ox 07/18/20 11:00 94 L 07/18/20 10:00 88 L 07/18/20 08:56 98 07/18/20 08:00 98 07/18/20 07:45 96.7 F 112 H 18 120/56 95 07/18/20 07:00 97 07/18/20 06:31 96 07/18/20 06:00 20 96 07/18/20 05:27 92 L 07/18/20 05:00 96 07/18/20 04:00 98.3 F 111 H 22 130/66 94 L 07/18/20 03:00 96 07/18/20 02:43 96 07/18/20 02:00 93 L 07/18/20 01:00 96 07/18/20 00:00 98.2 F 108 H 20 137/71 94 L 07/17/20 23:51 96 07/17/20 23:05 96 07/17/20 22:43 98 07/17/20 20:00 98.1 F 111 H 22 133/63 97 07/17/20 19:35 96 07/17/20 18:43 97 07/17/20 17:40 97 07/17/20 17:07 98 F 112 H 20 143/74 96 07/17/20 16:55 20 07/17/20 16:43 98 F 112 H 20 143/74 96 07/17/20 16:40 98 F 112 H 20 143/74 96 07/17/20 14:21 106 H 20 150/80 95 07/17/20 13:00 107 H 18 139/89 96 07/17/20 12:16 112 H 16 152/86 96 Home Medications Medication Instructions Recorded Confirmed Last Taken Type Mupirocin [Bactroban 0 gm TOP BID PRN 07/17/20 07/17/20 Unknown History OINTMENT] Current Medications Generic Name Dose Route Start Last Admin Trade Name Freq PRN Reason Stop Dose Admin Ergocalciferol 50,000 unit 07/19/20 10:00 Vitamin D2 PO 08/18/20 09:59 TuSa@1000 KALA Fentanyl Citrate 50 mcg 07/17/20 17:25 07/17/20 17:28 Sublimaze 100 Mcg/2 Ml IV 07/22/20 17:24 50 mcg Q4H PRN PRN Administration SEVERE PAIN Hydromorphone HCl 0 mg 07/17/20 18:35 07/17/20 18:43 Dilaudid 1 Mg/1ml [employer] IV 07/22/20 18:34 30 mg PRN PRN Administration Sodium Chloride 1,000 mls @ 150 mls/hr 07/17/20 16:30 07/18/20 05:54 Sodium Chloride 0.9% 1000 Ml IV 08/16/20 16:29 150 mls/hr .Q6H40M KALA Administration Potassium Chloride 20 meq in 100 mls @ 50 mls/hr 07/18/20 08:00 07/18/20 07:59 Potassium Chloride 20 Meq In Water 100ml IV 07/18/20 11:59 50 mls/hr Q2H KALA Administration Levothyroxine Sodium 200 mcg 07/18/20 10:00 07/18/20 10:31 Synthroid 100 Mcg PO 08/17/20 09:59 200 mcg DAILY KALA Administration Metoprolol Tartrate 25 mg 07/17/20 22:00 07/18/20 10:32 Lopressor 25mg Tab PO 08/16/20 21:59 25 mg BID KALA Administration Miscellaneous Information 0 each 07/17/20 17:45 Medication Intervention 08/16/20 17:44 .RN TO CHECK WITH PT KALA Mupirocin 1 gm 07/17/20 17:27 Bactroban Ointment TOP 08/16/20 17:26 BID PRN PRN REDNESS/IRRITATION Ondansetron HCl 4 mg 07/17/20 18:56 07/18/20 08:14 Zofran 4 Mg/2 Ml Vial IV 08/16/20 18:55 4 mg Q4H PRN PRN Administration NAUSEA/VOMITING Pantoprazole Sodium 40 mg 07/17/20 22:00 07/17/20 21:30 Protonix 40mg Tablet PO 08/16/20 21:59 40 mg QPM KALA Administration Quetiapine Fumarate 300 mg 07/17/20 22:00 07/17/20 21:32 Seroquel 100 Mg PO 08/16/20 21:59 Not Given QHS KALA Tizanidine HCl 12 mg 07/17/20 22:00 07/17/20 21:32 Zanaflex 4 Mg PO 08/16/20 21:59 Not Given QHS KALA Discontinued Medications Generic Name Dose Route Start Last Admin Trade Name Freq PRN Reason Stop Dose Admin Fentanyl Citrate 50 mcg 07/17/20 12:39 07/17/20 12:42 Sublimaze 100 Mcg/2 Ml IV 07/17/20 12:40 50 mcg STAT ONE Administration Fentanyl Citrate Confirm 07/17/20 12:41 Sublimaze 100 Mcg/2 Ml Administered 07/17/20 12:42 Dose 100 mcg .ROUTE .STK-MED ONE Hydromorphone HCl 1 mg 07/17/20 14:19 07/17/20 14:24 Hydromorphone 1 Mg/Ml Injection IV 07/17/20 14:20 1 mg STAT ONE Administration Hydromorphone HCl Confirm 07/17/20 14:23 Hydromorphone 1 Mg/Ml Injection Administered 07/17/20 14:24 Dose 1 mg .ROUTE .STK-MED ONE Hydromorphone HCl 1 mg 07/17/20 15:00 Hydromorphone 1 Mg/Ml Injection IV 07/22/20 14:59 Q2HPRN PRN PAIN Hydromorphone HCl 0.5 mg 07/17/20 16:29 07/17/20 16:51 Hydromorphone 1 Mg/Ml Injection IV 07/22/20 16:28 0.5 mg Q4H PRN PRN Administration PAIN Sodium Chloride 1,000 mls @ 999 mls/hr 07/17/20 12:07 07/17/20 13:18 Sodium Chloride 0.9% 1000 Ml IV 07/17/20 13:07 Infused .Q1H1M STA Infusion Sodium Chloride Confirm 07/17/20 12:08 Sodium Chloride 0.9% 1000 Ml Administered 07/17/20 12:09 Dose 1,000 mls @ ud .ROUTE .STK-MED ONE Sodium Chloride 1,000 mls @ 100 mls/hr 07/17/20 15:00 Sodium Chloride 0.9% 1000 Ml IV 08/16/20 14:59 .Q10H KALA Ketorolac Tromethamine 30 mg 07/17/20 11:44 07/17/20 12:12 Toradol 30 Mg Injection IV 07/17/20 11:45 30 mg STAT ONE Administration Ketorolac Tromethamine Confirm 07/17/20 12:08 Toradol 30 Mg Injection Administered 07/17/20 12:09 Dose 30 mg .ROUTE .STK-MED ONE Non-Formulary Medication 1 each 07/17/20 18:13 07/17/20 19:31 Pharmacy Dosing Required: Dilaudid [employer] IV 07/17/20 18:14 1 each STAT STA Administration Ondansetron HCl 4 mg 07/17/20 11:44 07/17/20 12:12 Zofran 4 Mg/2 Ml Vial IV 07/17/20 11:45 4 mg STAT ONE Administration Ondansetron HCl Confirm 07/17/20 12:08 Zofran 4 Mg/2 Ml Vial Administered 07/17/20 12:09 Dose 4 mg .ROUTE .STK-MED ONE Ondansetron HCl 4 mg 07/17/20 15:00 Zofran 4 Mg/2 Ml Vial IV 08/16/20 14:59 Q6H PRN PRN NAUSEA/VOMITING Ondansetron HCl Confirm 07/17/20 19:01 Zofran 4 Mg/2 Ml Vial Administered 07/17/20 19:02 Dose 4 mg .ROUTE .STK-MED ONE Intake & Output (Last 24 hours) 07/15/20 07/16/20 07/17/20 07/18/20 11:59 11:59 11:59 11:59 Intake Total 2200 Output Total 1000 Balance 1200 Weight 91.6 kg 92.4 kg Laboratory Results (Last 24 hours) 07/18/20 07/18/20 07/18/20 10:17 05:00 04:47 WBC RBC Hgb Hct MCV MCH MCHC RDW Plt Count MPV Absolute Granulocytes Segmented Neutrophils Band Neutrophils Lymphocytes (Manual) Monocytes (Manual) Platelet Estimate RBC Morphology Polychromasia Anisocytosis D-Dimer 838 H* Sodium 133 L Potassium 3.0 L Chloride 105 Carbon Dioxide 20 L Anion Gap 11.8 BUN 9 Creatinine 0.53 Estimated GFR > 60.0 Glucose 115 H Calcium 7.6 L Total Bilirubin 0.70 AST 23 ALT 12 Alkaline Phosphatase 115 Serum Total Protein 7.2 Albumin 3.4 L Amylase Lipase Urine Color Urine Appearance Urine pH Ur Specific [place] Urine Protein Urine Ketones Urine Blood Urine Nitrite Urine Bilirubin Urine Urobilinogen Ur Leukocyte Esterase Urine WBC (Auto) Urine RBC (Auto) U Epithel Cells (Auto) Urine Bacteria (Auto) Amorphous Crystals Urine Mucus (Auto) Urine Culture Reflexed Urine Glucose SARS-CoV-2 (PCR) NEGATIVE 07/18/20 07/17/20 07/17/20 04:15 12:40 12:40 WBC 21.2 H 20.5 H RBC 3.66 L 4.10 Hgb 11.2 L 12.9 Hct 34.1 L 37.6 MCV 93.2 91.7 MCH 30.6 31.5 MCHC 32.8 34.3 RDW 15.1 H 14.9 H Plt Count 302 361 MPV 10.5 10.6 Absolute Granulocytes 18.05 H Segmented Neutrophils 71 H 80 H Band Neutrophils 14 H 4 H Lymphocytes (Manual) 10 L 6 L Monocytes (Manual) 5 10 Platelet Estimate NORMAL NORMAL RBC Morphology ABNORMAL NORMAL Polychromasia RARE Anisocytosis 1+ D-Dimer Sodium 132 L Potassium 3.4 L Chloride 100 Carbon Dioxide 16 L* Anion Gap 18.8 H BUN 11 Creatinine 0.55 Estimated GFR > 60.0 Glucose 122 H Calcium 8.9 Total Bilirubin 0.70 AST 24 ALT 19 Alkaline Phosphatase 143 H Serum Total Protein 8.6 H Albumin 3.6 Amylase 156 H Lipase 550 H Urine Color Urine Appearance Urine pH Ur Specific [place] Urine Protein Urine Ketones Urine Blood Urine Nitrite Urine Bilirubin Urine Urobilinogen Ur Leukocyte Esterase Urine WBC (Auto) Urine RBC (Auto) U Epithel Cells (Auto) Urine Bacteria (Auto) Amorphous Crystals Urine Mucus (Auto) Urine Culture Reflexed Urine Glucose SARS-CoV-2 (PCR) 07/17/20 11:44 WBC RBC Hgb Hct MCV MCH MCHC RDW Plt Count MPV Absolute Granulocytes Segmented Neutrophils Band Neutrophils Lymphocytes (Manual) Monocytes (Manual) Platelet Estimate RBC Morphology Polychromasia Anisocytosis D-Dimer Sodium Potassium Chloride Carbon Dioxide Anion Gap BUN Creatinine Estimated GFR Glucose Calcium Total Bilirubin AST ALT Alkaline Phosphatase Serum Total Protein Albumin Amylase Lipase Urine Color YELLOW Urine Appearance TURBID Urine pH 5.0 Ur Specific [place] 1.023 Urine Protein 100 Urine Ketones SMALL Urine Blood SMALL Urine Nitrite NEGATIVE Urine Bilirubin NEGATIVE Urine Urobilinogen NEGATIVE Ur Leukocyte Esterase NEGATIVE Urine WBC (Auto) NONE Urine RBC (Auto) NONE U Epithel Cells (Auto) RARE Urine Bacteria (Auto) RARE Amorphous Crystals MANY Urine Mucus (Auto) MANY Urine Culture Reflexed NO Urine Glucose NEGATIVE SARS-CoV-2 (PCR) Orders (Last 24 hours) Category Date Time Status Bedrest [Bedrest with BRP/BSC] TOLERATED Activity 07/17/20 17:29 Active IV Insertion STAT Care 07/17/20 12:03 Completed Order K Level 2 hours post-inf 2 HRS POST K-INFUSED Care 07/18/20 06:55 Active Telemetry q4h Care 07/18/20 06:55 Active NPO except Meds Diet 07/17/20 17:07 Active ABDOMEN AND PELVIS W CONTRAST [CT] Stat Exams 07/17/20 13:18 Completed AMYLASE AM.LAB Lab 07/19/20 04:00 Ordered AMYLASE Stat Lab 07/17/20 12:40 Completed CBC W DIFF Stat Lab 07/17/20 12:40 Completed CBC W DIFF Stat Lab 07/18/20 04:15 Completed CMP AM.LAB Lab 07/18/20 04:47 Completed CMP Stat Lab 07/17/20 12:40 Completed D-DIMER QUANTITATIVE Stat Lab 07/18/20 05:00 Completed LIPASE AM.LAB Lab 07/19/20 04:00 Ordered LIPASE Stat Lab 07/17/20 12:40 Completed Manual Differential NC Stat Lab 07/17/20 12:40 Completed Manual Differential NC Stat Lab 07/18/20 04:15 Completed UA W/RFX UR CULTURE Stat Lab 07/17/20 11:44 Completed Ergocalciferol (Vitamin D2) [Vitamin D2] Med 07/19/20 10:00 Active 50,000 unit PO TuSa@1000 Fentanyl Citrate 100 Mcg/2 ml* [Sublimaze 100 Mcg/2 ml* Med 07/17/20 12:41 Discontinued ] 100 mcg .ROUTE .STK-MED ONE Fentanyl Citrate 100 Mcg/2 ml* [Sublimaze 100 Mcg/2 ml* Med 07/17/20 17:25 Active ] 50 mcg IV Q4H PRN PRN Fentanyl Citrate 100 Mcg/2 ml* [Sublimaze 100 Mcg/2 ml* Med 07/17/20 12:39 Discontinued ] 50 mcg IV STAT ONE Hydromorphone 1 mg/1Ml Inj [Hydromorphone 1 mg/ml Med 07/17/20 16:29 Discontinued Injection] 0.5 mg IV Q4H PRN PRN Hydromorphone 1 mg/1Ml Inj [Hydromorphone 1 mg/ml Med 07/17/20 14:23 Discontinued Injection] 1 mg .ROUTE .STK-MED ONE Hydromorphone 1 mg/1Ml Inj [Hydromorphone 1 mg/ml Med 07/17/20 15:00 Discontinued Injection] 1 mg IV Q2HPRN PRN Hydromorphone 1 mg/1Ml Inj [Hydromorphone 1 mg/ml Med 07/17/20 14:19 Discontinued Injection] 1 mg IV STAT ONE Hydromorphone HCl 30 mg/30 ml* [Dilaudid 1 mg/1Ml [employer] Med 07/17/20 18:35 Active *] 0 mg IV PRN PRN KETOROLAC trometh 30 mg Inj [TORAdol 30 mg Injection Med 07/17/20 12:08 Discontinued ] 30 mg .ROUTE .STK-MED ONE KETOROLAC trometh 30 mg Inj [TORAdol 30 mg Injection Med 07/17/20 11:44 Discontinued ] 30 mg IV STAT ONE Levothyroxine Sodium 100 Mcg [Synthroid 100 Mcg] Med 07/18/20 10:00 Active 200 mcg PO DAILY Medication Intervention Med 07/17/20 17:45 Active 0 each MC .RN TO CHECK WITH PT Metoprolol Tartrate 25 mg [Lopressor 25MG Tab] Med 07/17/20 22:00 Active 25 mg PO BID Mupirocin [Bactroban OINTMENT] Med 07/17/20 17:27 Active 1 gm TOP BID PRN PRN NaCl 0.9% 1000 ml [Sodium Chloride 0.9% 1000 ML] 1,000 Med 07/17/20 12:08 Discontinued ml .ROUTE UD NaCl 0.9% 1000 ml [Sodium Chloride 0.9% 1000 ML] 1,000 Med 07/17/20 15:00 Discontinued ml IV 100 mls/hr NaCl 0.9% 1000 ml [Sodium Chloride 0.9% 1000 ML] 1,000 Med 07/17/20 16:30 Active ml IV 150 mls/hr NaCl 0.9% 1000 ml [Sodium Chloride 0.9% 1000 ML] 1,000 Med 07/17/20 12:07 Discontinued ml IV 999 mls/hr Ondansetron HCl 4 mg/2 ml [Zofran 4 MG/2 ML VIAL] Med 07/17/20 12:08 Discontinued 4 mg .ROUTE .STK-MED ONE Ondansetron HCl 4 mg/2 ml [Zofran 4 MG/2 ML VIAL] Med 07/17/20 19:01 Discontinued 4 mg .ROUTE .STK-MED ONE Ondansetron HCl 4 mg/2 ml [Zofran 4 MG/2 ML VIAL] Med 07/17/20 18:56 Active 4 mg IV Q4H PRN PRN Ondansetron HCl 4 mg/2 ml [Zofran 4 MG/2 ML VIAL] Med 07/17/20 15:00 Discontinued 4 mg IV Q6H PRN PRN Ondansetron HCl 4 mg/2 ml [Zofran 4 MG/2 ML VIAL] Med 07/17/20 11:44 Discontinued 4 mg IV STAT ONE PANTOPRAZOLE 40 mg Tablet [Protonix 40MG Tablet] Med 07/17/20 22:00 Active 40 mg PO QPM Pharmacy Dose: Dilaudid [employer] [Pharmacy Dosing Required: Med 07/17/20 18:13 Discontinued Dilaudid [employer]] 1 each IV STAT STA Potassium Chloride 20Meq/100Ml [POTASSIUM CHLORIDE 20 Med 07/18/20 08:00 Active mEq IN WATER 100ML] 20 meq in 100 ml IV Q2H Quetiapine Fumarate 100 mg [Seroquel 100 MG] Med 07/17/20 22:00 Active 300 mg PO QHS Tizanidine HCl 4 mg [Zanaflex 4 MG] Med 07/17/20 22:00 Active 12 mg PO QHS Pulse Oximetry Q1H RT 07/17/20 19:25 Active RT Miscellaneous Order ROUTINE RT 07/17/20 18:57 Completed Smoking Cessation Education ONCE RT 07/17/20 17:24 Active Patient Care Notes (Last 24 hours) 07/18/20 11:16 Nursing Note by Sheila King [id number] Curran MRI will not be completed until Tuesday d/t staffing issues. Faisal RT informed Dr. Prescott recommended to rest the pancreas to allow swelling to decrease for provide a better view on MRI. No new orders. Initialized on 07/18/20 11:16 - END OF NOTE 07/17/20 18:13 Nursing Note by Pamela Batista dr notified of pt pain level. 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
[2020-07-18] MEDS ORDERED: Mylicon 80MG PO PRN (12:04)
[2020-07-18] MEDS: ROCEPHIN 1 Gm-D5w 50 ml Bag** 1 G/50 ML IVPB IV SCH (15:05)
[2020-07-18] MEDS: Morphine PCA 1 MG/ML 30 ML IV PRN (17:44)
[2020-07-18] MEDS ORDERED: Klor Con 10 MEQ PO ONE (18:54)
[2020-07-18] MEDS: Zanaflex 4 MG PO SCH (22:18)
[2020-07-18] MEDS: Protonix 40MG Tablet PO SCH (22:18)
[2020-07-18] MEDS: Seroquel 100 MG PO SCH (22:18)
[2020-07-19] MEDS: Sodium Chloride 0.9% 1000 ML 1,000 ML IV SCH ×2 (02:24→09:02)
[2020-07-19] MEDS: Morphine PCA 1 MG/ML 30 ML IV PRN (04:48)
[2020-07-19 06:57] LABS: ALBUMIN 3.3 g/dL (3.5-5.0); ALKALINE PHOSPHATASE 130 U/L (38-126); AMYLASE 105 U/L (30-110); ANION GAP 11.6 MEQ/L (5-15); CHLORIDE 105 mmol/L (98-107); Calcium 7.8 mg/dL (8.4-10.2); Carbon Dioxide 18 mmol/L (22-30); Creatinine 1 0.42 mg/dL (0.52-1.04); EST GLOMERULAR FILTRATION RATE > 60.0 ML/MIN; Glucose 137 mg/dL (74-106); LIPASE 143 U/L (23-300); SGOT/AST 23 U/L (14-36); SGPT/ALT 11 U/L (0-35); SODIUM 131 mmol/L (137-145); Total Protein 6.9 g/dL (6.3-8.2)
[2020-07-19 07:09] LABS: BLOOD UREA NITROGEN 2 mg/dL (7-17)
[2020-07-19 07:12] LABS: Hematocrit 33.1 % (35-47); Hemoglobin 10.5 gm/dl (12.0-16.0); Mean Cell Volume 92.7 fl (78-100); Mean Corpuscular Hemoglobin 29.4 pg (26-32); Mean Corpuscular Hgb Concent. 31.7 g/dl (32-36); Mean Platelet Volume 10.2 fl (7.5-11.0); Platelet Count 275 K/mm3 (150-450); Red Blood Count 3.57 M/mm3 (4.1-5.4); Red Cell Distribution Width 15.1 % (11.5-14.0); White Blood Count 24.3 K/mm3 (4.0-10.5)
[2020-07-19] MEDS ORDERED: MORPHINE SULFATE 2 MG INJ IV PRN (07:22)
[2020-07-19] MEDS ORDERED: Klor Con 10 MEQ PO ONE (07:24)
--- NOTE | 2020-07-19 09:34 | PCM.NOTE ---
Date and Time: 07/19/20928 Subjective Assessment: Pt notes pain under better control, not hungry, but feeling better, enzymes now normal for pancreas but wbc continue to increase. No steroids have been given to patient, rocephin has been started yesterday, history of pcn allergy will add cleocin today with CT of abdomen and pelvis and repeat cbc, cmp in the am. - Review of Systems Constitutional: No Fever, No Chills Eyes: No Symptoms Ears, Nose, & Throat: No Symptoms Respiratory: No Cough, No Short Of Breath Cardiac: No Chest Pain, No Edema, No Syncope Abdominal/Gastrointestinal: Abdominal Pain, No Nausea, No Vomiting, No Diarrhea Genitourinary Symptoms: No Dysuria Musculoskeletal: No Back Pain, No Neck Pain Skin: No Rash Neurological: No Dizziness, No Focal Weakness, No Sensory Changes Psychological: No Symptoms Endocrine: No Symptoms Hematologic/Lymphatic: No Symptoms Immunological/Allergic: No Symptoms Objective Exam Neurologic Exam: alert, cooperative Skin Exam: normal color, warm, dry Eye Exam: EOMI Ears, Nose, Throat Exam: normal ENT inspection Neck Exam: normal inspection, non-tender Respiratory Exam: normal breath sounds, lungs clear Cardiovascular Exam: regular rate/rhythm, normal heart sounds Gastrointestinal/Abdomen Exam: soft, tenderness (left upper quad greater than LLQ) Extremity Exam: normal inspection OBJECTIVE DATA Vital Signs: Vital Signs - 24 hr Temp Pulse Resp BP Pulse Ox 07/19/20 07:50 95 07/19/20 07:26 98.7 F 100 H 20 115/61 96 07/19/20 06:00 20 07/19/20 05:44 97 07/19/20 04:48 97 07/19/20 04:00 97.6 F 97 H 20 121/69 97 07/19/20 01:44 97 07/19/20 00:00 99.0 F 107 H 22 133/70 92 L 07/18/20 21:44 98 07/18/20 20:00 98.5 F 114 H 16 133/71 98 07/18/20 19:37 92 L 07/18/20 18:00 20 07/18/20 17:44 98 07/18/20 16:50 98 07/18/20 16:00 98.6 F 109 H 18 125/58 98 07/18/20 15:00 98 12/11/20 14:00 96 07/18/20 13:00 97 07/18/20 12:00 18 96 07/18/20 11:52 97.6 F 104 H 16 109/67 97 07/18/20 11:00 94 L 07/18/20 10:43 94 L 07/18/20 10:00 88 L Pain Assessment - Last Documented Pain Intensity 3 Pain Scale Used 0-10 Pain Scale Intake and Output: Intake & Output 07/16/20 07/17/20 07/18/20 07/19/20 11:59 11:59 11:59 11:59 Intake Total 2450 4296 Output Total 1250 1800 Balance 1200 2496 Weight 91.6 kg 92.4 kg Lab Results: Lab Results-Last 24 Hours 07/18/20 07/18/20 07/18/20 Range/Units 05:00 10:17 17:40 WBC (4.0-10.5) K/mm3 RBC (4.1-5.4) M/mm3 Hgb (12.0-16.0) gm/dl Hct (35-47) % MCV (78-100) fl MCH (26-32) pg MCHC (32-36) g/dl RDW (11.5-14.0) % Plt Count (150-450) K/mm3 MPV (7.5-11.0) fl D-Dimer 838 H* (215-500) ng/mL Sodium (137-145) mmol/L Potassium 3.2 L (3.5-5.1) mmol/L Chloride (98-107) mmol/L Carbon Dioxide (22-30) mmol/L Anion Gap (5-15) MEQ/L BUN (7-17) mg/dL Creatinine (0.52-1.04) mg/dL Estimated GFR ML/MIN Glucose (74-106) mg/dL Calcium (8.4-10.2) mg/dL Total Bilirubin (0.2-1.3) mg/dL AST (14-36) U/L ALT (0-35) U/L Alkaline Phosphatase (38-126) U/L Serum Total Protein (6.3-8.2) g/dL Albumin (3.5-5.0) g/dL Amylase (30-110) U/L Lipase (23-300) U/L SARS-CoV-2 (PCR) NEGATIVE (NEGATIVE) 07/19/20 07/19/20 Range/Units 05:00 05:00 WBC 24.3 H (4.0-10.5) K/mm3 RBC 3.57 L (4.1-5.4) M/mm3 Hgb 10.5 L (12.0-16.0) gm/dl Hct 33.1 L (35-47) % MCV 92.7 (78-100) fl MCH 29.4 (26-32) pg MCHC 31.7 L (32-36) g/dl RDW 15.1 H (11.5-14.0) % Plt Count 275 (150-450) K/mm3 MPV 10.2 (7.5-11.0) fl D-Dimer (215-500) ng/mL Sodium 131 L (137-145) mmol/L Potassium 3.0 L (3.5-5.1) mmol/L Chloride 105 (98-107) mmol/L Carbon Dioxide 18 L (22-30) mmol/L Anion Gap 11.6 (5-15) MEQ/L BUN 2 L (7-17) mg/dL Creatinine 0.42 L (0.52-1.04) mg/dL Estimated GFR > 60.0 ML/MIN Glucose 137 H (74-106) mg/dL Calcium 7.8 L (8.4-10.2) mg/dL Total Bilirubin 1.00 (0.2-1.3) mg/dL AST 23 (14-36) U/L ALT 11 (0-35) U/L Alkaline Phosphatase 130 H (38-126) U/L Serum Total Protein 6.9 (6.3-8.2) g/dL Albumin 3.3 L (3.5-5.0) g/dL Amylase 105 (30-110) U/L Lipase 143 (23-300) U/L SARS-CoV-2 (PCR) (NEGATIVE) Radiology Exams: Radiology Procedures Category Date Time Status ABDOMEN AND PELVIS W CONTRAST [CT] Stat Exams 07/17/20 13:18 Completed Assessment/Plan (1) Hypokalemia Current Visit: Yes Status: Acute Assessment & Plan: Change ivf to potassium containing fluids, pt. with very good urine output, so we will maintain current rate. Code(s): E87.6 - HYPOKALEMIA (2) Pancreatitis Current Visit: Yes Status: Acute Qualifiers: Chronicity: acute Pancreatitis type: unspecified pancreatitis type Acute pancreatitis complication: no infection or necrosis Qualified Code(s): K85.90 - Acute pancreatitis without necrosis or infection, unspecified Assessment & Plan: Pancreatic markers are now normal, wbc are going up rocephin added yesterday, will add cleocin and obtain ct of abd/pelvis and repeat cbc in am Code(s): K85.90 - ACUTE PANCREATITIS WITHOUT NECROSIS OR INFECTION, UNSP
[2020-07-19] MEDS: SYNTHROID 100 MCG PO SCH (09:41)
[2020-07-19] MEDS: ROCEPHIN 1 Gm-D5w 50 ml Bag** 1 G/50 ML IVPB IV SCH (09:41)
[2020-07-19] MEDS: Lopressor 25MG Tab PO SCH ×2 (09:41→21:42)
[2020-07-19] MEDS: VITAMIN D2 PO SCH (09:41)
[2020-07-19] MEDS: Sodium Chloride 0.9% W/ 20 mEq KCl/LITER 1,000 ML IV SCH ×2 (10:04→18:11)
[2020-07-19] MEDS: CLINDAMYCIN-D5W 600 MG/50 ML*** 600 MG/50 ML BAG IV SCH ×3 (10:37→21:42)
[2020-07-19 13:21] LABS: BAND 6 % (0.0-2.0); Lymphocytes 10 % (24-44); Monocyte 1 % (0.0-12.0); Neutrophils 83 % (36.0-66.0); Total Cells Counted 100
[2020-07-19 13:22] LABS: ANISOCYTOSIS 1+; Platelet Estimate NORMAL (NORMAL); Toxic Granulation 1+
--- NOTE | 2020-07-19 18:19 | XRAY ---
Indication: Abdomen pain. Acute pancreatitis. Multiple contiguous axial images obtained through the abdomen and pelvis using 80 cc Isovue 370 contrast only. Comparison: July 17, 2020. Lung bases demonstrates worsening left lower lobe subsegmental atelectasis. Posterior left lower lobe demonstrates 1.5 x 1.0 cm well-circumscribed subpleural noncalcified nodule. Heart is not enlarged. Body and tail of pancreas again demonstrates extensive pancreatitis more extensive and worsened in the interim. Also increasing free fluid along the left colic gutter. No walled off fluid collection or free air. Noncontrasted stomach and bowel loops remain nonobstructed. Stable diffuse fatty hepatomegaly, splenomegaly, left ovary cyst, and cholecystectomy. Remaining adrenal glands, kidneys, ureters, bladder, and aorta are unremarkable. Impression: 1. Worsening pancreatitis as detailed. 2. Worsening left lower lobe subsegmental atelectasis. 3. Left lower lobe indeterminate noncalcified pulmonary nodule. Recommend outside CT comparison studies if available. If not, CT chest recommended to establish baseline with follow-up per Fleischner guidelines. 4. Stable fatty hepatomegaly, splenomegaly, and left ovary cyst. Comment: Preliminary interpretation was made by [facility]. No critical discrepancy.
[2020-07-19] MEDS: Protonix 40MG Tablet PO SCH (21:43)
[2020-07-19] MEDS: Zanaflex 4 MG PO SCH (21:46)
[2020-07-19] MEDS: Seroquel 100 MG PO SCH (21:46)
[2020-07-20] MEDS: Sodium Chloride 0.9% W/ 20 mEq KCl/LITER 1,000 ML IV SCH ×3 (01:09→17:23)
[2020-07-20 05:06] LABS: Hematocrit 33.4 % (35-47); Hemoglobin 10.5 gm/dl (12.0-16.0); Mean Cell Volume 93.3 fl (78-100); Mean Corpuscular Hemoglobin 29.3 pg (26-32); Mean Corpuscular Hgb Concent. 31.4 g/dl (32-36); Mean Platelet Volume 9.9 fl (7.5-11.0); Platelet Count 320 K/mm3 (150-450); Red Blood Count 3.58 M/mm3 (4.1-5.4); Red Cell Distribution Width 15.2 % (11.5-14.0)
[2020-07-20 05:19] LABS: White Blood Count 25.6 K/mm3 (4.0-10.5)
[2020-07-20 05:26] LABS: ALBUMIN 3.4 g/dL (3.5-5.0); ALKALINE PHOSPHATASE 149 U/L (38-126); ANION GAP 15.6 MEQ/L (5-15); CHLORIDE 106 mmol/L (98-107); Calcium 8.4 mg/dL (8.4-10.2); EST GLOMERULAR FILTRATION RATE > 60.0 ML/MIN; Glucose 146 mg/dL (74-106); Potassium 3.7 mmol/L (3.5-5.1); SGOT/AST 25 U/L (14-36); SGPT/ALT 13 U/L (0-35); SODIUM 134 mmol/L (137-145); Total Protein 6.7 g/dL (6.3-8.2)
[2020-07-20 05:31] LABS: BLOOD UREA NITROGEN < 2 mg/dL (7-17)
[2020-07-20 05:32] LABS: Carbon Dioxide 16 mmol/L (22-30)
[2020-07-20] MEDS: CLINDAMYCIN-D5W 600 MG/50 ML*** 600 MG/50 ML BAG IV SCH (05:35)
[2020-07-20] MEDS: SYNTHROID 100 MCG PO SCH (09:48)
[2020-07-20] MEDS: Lopressor 25MG Tab PO SCH ×2 (09:48→21:55)
[2020-07-20] MEDS: ROCEPHIN 1 Gm-D5w 50 ml Bag** 1 G/50 ML IVPB IV SCH (09:48)
--- NOTE | 2020-07-20 11:08 | PCM.NOTE ---
Date and Time: 07/20/20 1103 Subjective Assessment: Clinically patient is feeling better today, decrease in pain and nausea noted. CT reviewed and discussed with patient that pancreatitis seemed worse and wbc elevated infomed patient of change in antibiotics, continues with good urine output. - Review of Systems Constitutional: No Symptoms Eyes: No Symptoms Ears, Nose, & Throat: No Symptoms Respiratory: No Symptoms Cardiac: No Symptoms Abdominal/Gastrointestinal: Abdominal Pain Genitourinary Symptoms: No Symptoms Musculoskeletal: No Symptoms Objective Exam General Appearance: no apparent distress (PT. notes feeling better, more interactive and communacative this am) Neurologic Exam: alert, cooperative Skin Exam: normal color, warm, dry Eye Exam: EOMI Neck Exam: normal inspection, non-tender Respiratory Exam: normal breath sounds Cardiovascular Exam: regular rate/rhythm, normal heart sounds Gastrointestinal/Abdomen Exam: soft OBJECTIVE DATA Vital Signs: Vital Signs - 24 hr Temp Pulse Resp BP Pulse Ox 07/20/20 09:09 97 07/20/20 07:18 98.0 F 97 H 20 135/66 98 07/20/20 06:00 18 07/20/20 04:48 96 07/20/20 04:00 97.2 F 96 H 18 132/72 96 07/20/20 00:48 96 07/20/20 00:00 97.4 F 90 20 130/64 99 07/19/20 20:35 93 L 07/19/20 20:00 97.2 F 64 18 115/62 93 L 07/19/20 18:06 97 07/19/20 17:58 20 07/19/20 16:48 96 07/19/20 16:00 97.8 F 98 H 20 128/70 98 07/19/20 13:44 97 07/19/20 12:48 97 07/19/20 12:00 98.0 F 101 H 22 137/62 97 Pain Assessment - Last Documented Pain Intensity 0 Pain Scale Used 0-10 Pain Scale Intake and Output: Intake & Output 07/17/20 07/18/20 07/19/20 07/20/20 11:59 11:59 11:59 11:59 Intake Total 2450 4396 3484 Output Total 1250 2000 2900 Balance 1200 2396 584 Weight 91.6 kg 92.4 kg Lab Results: Lab Results-Last 24 Hours 07/19/20 07/20/20 07/20/20 Range/Units 05:00 04:58 04:58 WBC 25.6 H* (4.0-10.5) K/mm3 RBC 3.58 L (4.1-5.4) M/mm3 Hgb 10.5 L (12.0-16.0) gm/dl Hct 33.4 L (35-47) % MCV 93.3 (78-100) fl MCH 29.3 (26-32) pg MCHC 31.4 L (32-36) g/dl RDW 15.2 H (11.5-14.0) % Plt Count 320 (150-450) K/mm3 MPV 9.9 (7.5-11.0) fl Segmented Neutrophils 83 H (36.0-66.0) % Band Neutrophils 6 H (0.0-2.0) % Lymphocytes (Manual) 10 L (24-44) % Monocytes (Manual) 1 (0.0-12.0) % Toxic Granulation 1+ Platelet Estimate NORMAL (NORMAL) RBC Morphology ABNORMAL Anisocytosis 1+ Sodium 134 L (137-145) mmol/L Potassium 3.7 D (3.5-5.1) mmol/L Chloride 106 (98-107) mmol/L Carbon Dioxide 16 L* (22-30) mmol/L Anion Gap 15.6 H (5-15) MEQ/L BUN < 2 L (7-17) mg/dL Creatinine 0.40 L (0.52-1.04) mg/dL Estimated GFR > 60.0 ML/MIN Glucose 146 H (74-106) mg/dL Calcium 8.4 (8.4-10.2) mg/dL Total Bilirubin 0.70 (0.2-1.3) mg/dL AST 25 (14-36) U/L ALT 13 (0-35) U/L Alkaline Phosphatase 149 H (38-126) U/L Serum Total Protein 6.7 (6.3-8.2) g/dL Albumin 3.4 L (3.5-5.0) g/dL Radiology Exams: Radiology Procedures Category Date Time Status ABDOMEN AND PELVIS W CONTRAST [CT] Urgent Exams 07/19/20 10:00 Completed Assessment/Plan (1) Hypokalemia Current Visit: Yes Status: Acute Assessment & Plan: resolved with ivf changes Code(s): E87.6 - HYPOKALEMIA (2) Pancreatitis Current Visit: Yes Status: Acute Qualifiers: Chronicity: acute Pancreatitis type: unspecified pancreatitis type Acute pancreatitis complication: no infection or necrosis Qualified Code(s): K85.90 - Acute pancreatitis without necrosis or infection, unspecified Assessment & Plan: clinicallly the patient is feeling better with less pain and n/v. Labs of amylase and lipase normal yesterday, CT and wbc are worse, will d/c cleocin and ad meropenem to rocephin. Good urine output but anion gap up a little will increase ivf to 175 from 150, recheck cbc and cmp in the am. Code(s): K85.90 - ACUTE PANCREATITIS WITHOUT NECROSIS OR INFECTION, UNSP
[2020-07-20] MEDS: Merrem 1 GM 1 G in Sodium Chloride 100ML MINI-BAG PLUS 100 ML IV SCH ×2 (14:16→23:19)
[2020-07-20] MEDS: Morphine PCA 1 MG/ML 30 ML IV PRN (17:28)
[2020-07-20] MEDS: Protonix 40MG Tablet PO SCH (21:55)
[2020-07-20] MEDS: Zanaflex 4 MG PO SCH (21:55)
[2020-07-20] MEDS: Seroquel 100 MG PO SCH (23:19)
[2020-07-21 05:53] LABS: Hematocrit 28.1 % (35-47); Hemoglobin 8.8 gm/dl (12.0-16.0); Mean Cell Volume 94.6 fl (78-100); Mean Corpuscular Hemoglobin 29.6 pg (26-32); Mean Corpuscular Hgb Concent. 31.3 g/dl (32-36); Mean Platelet Volume 9.7 fl (7.5-11.0); Platelet Count 337 K/mm3 (150-450); Red Blood Count 2.97 M/mm3 (4.1-5.4); Red Cell Distribution Width 15.2 % (11.5-14.0); White Blood Count 18.3 K/mm3 (4.0-10.5)
[2020-07-21] MEDS: Merrem 1 GM 1 G in Sodium Chloride 100ML MINI-BAG PLUS 100 ML IV SCH ×3 (05:54→21:28)
[2020-07-21 06:11] LABS: ALBUMIN 3.3 g/dL (3.5-5.0); ALKALINE PHOSPHATASE 117 U/L (38-126); ANION GAP 12.2 MEQ/L (5-15); BLOOD UREA NITROGEN 5 mg/dL (7-17); CHLORIDE 109 mmol/L (98-107); Calcium 8.5 mg/dL (8.4-10.2); Creatinine 1 0.41 mg/dL (0.52-1.04); EST GLOMERULAR FILTRATION RATE > 60.0 ML/MIN; Glucose 114 mg/dL (74-106); Potassium 3.5 mmol/L (3.5-5.1); SGOT/AST 31 U/L (14-36); SGPT/ALT 12 U/L (0-35); SODIUM 134 mmol/L (137-145); Total Protein 6.7 g/dL (6.3-8.2)
[2020-07-21 06:16] LABS: Carbon Dioxide 17 mmol/L (22-30)
[2020-07-21] MEDS: Sodium Chloride 0.9% W/ 20 mEq KCl/LITER 1,000 ML IV SCH ×2 (07:26→15:45)
[2020-07-21] MEDS: ROCEPHIN 1 Gm-D5w 50 ml Bag** 1 G/50 ML IVPB IV SCH (09:06)
[2020-07-21] MEDS: SYNTHROID 100 MCG PO SCH (09:06)
[2020-07-21] MEDS: Lopressor 25MG Tab PO SCH ×2 (09:06→21:28)
--- NOTE | 2020-07-21 18:30 | PCM.DS ---
Discharge Summary Date of Admission: 07/17/20 16:00 Admitting Physician: NADEEM GUZMAN Primary Care Provider: NADEEM GUZMAN Allergies Allergies Penicillins Allergy (Intermediate, Verified 07/18/20 14:51) Rash hydromorphone [From Dilaudid] Adverse Reaction (Intermediate, Verified 07/18/20 14:51) Vomiting Hospital Summary - Hospital Course Hospital Course: Chief Complaint Diagnosis ACUTE PANCREATITIS Allergies Allergy/AdvReac Type Severity Reaction Status Date / Time Penicillins Allergy Intermediate Rash Verified 07/18/20 14:51 hydromorphone [From Dilaudid] AdvReac Intermediate Vomiting Verified 07/18/20 14:51 Vital Signs (Last 24 hours) Temp Pulse Resp BP Pulse Ox 07/21/20 16:00 96.6 F 93 H 17 142/75 98 07/21/20 13:13 95 07/21/20 12:00 97.1 F 94 H 17 137/80 99 07/21/20 08:00 97.3 F 94 H 15 146/71 96 07/21/20 05:58 98 07/21/20 05:47 16 07/21/20 04:00 97.9 F 93 H 14 112/62 98 07/21/20 00:00 97.8 F 88 16 144/60 98 07/20/20 20:48 97 07/20/20 20:00 98.4 F 95 H 16 132/67 98 07/20/20 19:25 99 Home Medications Medication Instructions Recorded Confirmed Last Taken Type Mupirocin [Bactroban 0 gm TOP BID PRN 07/17/20 07/17/20 Unknown History OINTMENT] Current Medications Generic Name Dose Route Start Last Admin Trade Name Freq PRN Reason Stop Dose Admin Ergocalciferol 50,000 unit 07/19/20 10:00 07/19/20 09:41 Vitamin D2 PO 08/18/20 09:59 50,000 unit TuSa@1000 KALA Administration Ceftriaxone Sodium/Dextrose 1 g in 50 mls @ 100 mls/hr 07/18/20 13:00 07/21/20 09:06 Rocephin 1 Gm-D5w 50 Ml Bag IV 08/17/20 12:59 100 mls/hr Q24H10 KALA Administration Potassium Chloride/Sodium Chloride 1,000 mls @ 100 mls/hr 07/19/20 10:00 07/21/20 15:45 Sodium Chloride 0.9% W/ 20 Meq Kcl/Liter IV 08/18/20 09:59 150 mls/hr .Q10H KALA Administration Meropenem 1 g/ Sodium Chloride 100 mls @ 200 mls/hr 07/20/20 14:00 07/21/20 14:09 IV 08/19/20 13:59 200 mls/hr Q8HT KALA Administration Levothyroxine Sodium 200 mcg 07/18/20 10:00 07/21/20 09:06 Synthroid 100 Mcg PO 08/17/20 09:59 200 mcg DAILY KALA Administration Metoprolol Tartrate 25 mg 07/17/20 22:00 07/21/20 09:06 Lopressor 25mg Tab PO 08/16/20 21:59 25 mg BID KALA Administration Miscellaneous Information 0 each 07/17/20 17:45 Medication Intervention MC 08/16/20 17:44 .RN TO CHECK WITH PT [facility] Morphine Sulfate 30 mg 07/18/20 16:25 07/20/20 17:28 Morphine Workforce Analyst 1 Mg/Ml 30 Ml IV 07/23/20 16:24 30 mg PRN PRN Administration PAIN Morphine Sulfate 2 mg 07/19/20 07:22 Morphine Sulfate 2 Mg Inj IV 07/24/20 07:21 Q4H PRN PRN Mupirocin 1 gm 07/17/20 17:27 Bactroban Ointment TOP 08/16/20 17:26 BID PRN PRN REDNESS/IRRITATION Ondansetron HCl 4 mg 07/17/20 18:56 07/18/20 14:42 Zofran 4 Mg/2 Ml Vial IV 08/16/20 18:55 4 mg Q4H PRN PRN Administration NAUSEA/VOMITING Pantoprazole Sodium 40 mg 07/17/20 22:00 07/20/20 21:55 Protonix 40mg Tablet PO 08/16/20 21:59 40 mg QPM KALA Administration Quetiapine Fumarate 300 mg 07/17/20 22:00 07/20/20 23:19 Seroquel 100 Mg PO 08/16/20 21:59 Not Given QHS KALA Simethicone 80 mg 07/18/20 12:04 07/18/20 12:40 Mylicon 80mg PO 08/17/20 12:03 80 mg QID PRN PRN Administration GAS Tizanidine HCl 12 mg 07/17/20 22:00 07/20/20 21:55 Zanaflex 4 Mg PO 08/16/20 21:59 12 mg QHS KALA Administration Discontinued Medications Generic Name Dose Route Start Last Admin Trade Name Freq PRN Reason Stop Dose Admin Fentanyl Citrate 50 mcg 07/17/20 12:39 07/17/20 12:42 Sublimaze 100 Mcg/2 Ml IV 07/17/20 12:40 50 mcg STAT ONE Administration Fentanyl Citrate Confirm 07/17/20 12:41 Sublimaze 100 Mcg/2 Ml Administered 07/17/20 12:42 Dose 100 mcg .ROUTE .STK-MED ONE Fentanyl Citrate 50 mcg 07/17/20 17:25 07/17/20 17:28 Sublimaze 100 Mcg/2 Ml IV 07/22/20 17:24 50 mcg Q4H PRN PRN Administration SEVERE PAIN Hydromorphone HCl 1 mg 07/17/20 14:19 07/17/20 14:24 Hydromorphone 1 Mg/Ml Injection IV 07/17/20 14:20 1 mg STAT ONE Administration Hydromorphone HCl Confirm 07/17/20 14:23 Hydromorphone 1 Mg/Ml Injection Administered 07/17/20 14:24 Dose 1 mg .ROUTE .STK-MED ONE Hydromorphone HCl 1 mg 07/17/20 15:00 Hydromorphone 1 Mg/Ml Injection IV 07/22/20 14:59 Q2HPRN PRN PAIN Hydromorphone HCl 0.5 mg 07/17/20 16:29 07/17/20 16:51 Hydromorphone 1 Mg/Ml Injection IV 07/22/20 16:28 0.5 mg Q4H PRN PRN Administration PAIN Hydromorphone HCl 0 mg 07/17/20 18:35 07/17/20 18:43 Dilaudid 1 Mg/1ml Workforce Analyst IV 07/22/20 16:24 30 mg PRN PRN Administration Sodium Chloride 1,000 mls @ 999 mls/hr 07/17/20 12:07 07/17/20 13:18 Sodium Chloride 0.9% 1000 Ml IV 07/17/20 13:07 Infused .Q1H1M STA Infusion Sodium Chloride Confirm 07/17/20 12:08 Sodium Chloride 0.9% 1000 Ml Administered 07/17/20 12:09 Dose 1,000 mls @ ud .ROUTE .STK-MED ONE Sodium Chloride 1,000 mls @ 100 mls/hr 07/17/20 15:00 Sodium Chloride 0.9% 1000 Ml IV 08/16/20 14:59 .Q10H KALA Sodium Chloride 1,000 mls @ 150 mls/hr 07/17/20 16:30 07/19/20 09:02 Sodium Chloride 0.9% 1000 Ml IV 08/16/20 16:29 150 mls/hr .Q6H40M KALA Administration Potassium Chloride 20 meq in 100 mls @ 50 mls/hr 07/18/20 08:00 07/18/20 12:09 Potassium Chloride 20 Meq In Water 100ml IV 07/18/20 11:59 50 mls/hr Q2H KALA Administration Clindamycin HCl/Dextrose 600 mg in 50 mls @ 100 mls/hr 07/19/20 10:00 07/20/20 05:35 Clindamycin-D5w 600 Mg/50 Ml IV 08/18/20 09:59 100 mls/hr Q8HT KALA Administration Ketorolac Tromethamine 30 mg 07/17/20 11:44 07/17/20 12:12 Toradol 30 Mg Injection IV 07/17/20 11:45 30 mg STAT ONE Administration Ketorolac Tromethamine Confirm 07/17/20 12:08 Toradol 30 Mg Injection Administered 07/17/20 12:09 Dose 30 mg .ROUTE .STK-MED ONE Non-Formulary Medication 1 each 07/17/20 18:13 07/17/20 19:31 Pharmacy Dosing Required: Dilaudid Workforce Analyst IV 07/17/20 18:14 1 each STAT STA Administration Ondansetron HCl 4 mg 07/17/20 11:44 07/17/20 12:12 Zofran 4 Mg/2 Ml Vial IV 07/17/20 11:45 4 mg STAT ONE Administration Ondansetron HCl Confirm 07/17/20 12:08 Zofran 4 Mg/2 Ml Vial Administered 07/17/20 12:09 Dose 4 mg .ROUTE .STK-MED ONE Ondansetron HCl 4 mg 07/17/20 15:00 Zofran 4 Mg/2 Ml Vial IV 08/16/20 14:59 Q6H PRN PRN NAUSEA/VOMITING Ondansetron HCl Confirm 07/17/20 19:01 Zofran 4 Mg/2 Ml Vial Administered 07/17/20 19:02 Dose 4 mg .ROUTE .STK-MED ONE Potassium Chloride 40 meq 07/18/20 18:54 07/18/20 19:07 Klor Con 10 Meq PO 07/18/20 18:55 40 meq STAT ONE Administration Potassium Chloride 40 meq 07/19/20 07:24 07/19/20 08:13 Klor Con 10 Meq PO 07/19/20 07:25 40 meq STAT ONE Administration Intake & Output (Last 24 hours) 07/19/20 07/20/20 07/21/20 07/22/20 11:59 11:59 11:59 11:59 Intake Total 4396 3484 3246 1771 Output Total 2000 2900 750 Balance 2396 584 2496 1771 Weight 92.4 kg Laboratory Results (Last 24 hours) 07/21/20 07/21/20 05:00 05:00 WBC 18.3 H RBC 2.97 L Hgb 8.8 L Hct 28.1 L MCV 94.6 MCH 29.6 MCHC 31.3 L RDW 15.2 H Plt Count 337 MPV 9.7 Sodium 134 L Potassium 3.5 Chloride 109 H Carbon Dioxide 17 L Anion Gap 12.2 BUN 5 L Creatinine 0.41 L Estimated GFR > 60.0 Glucose 114 H Calcium 8.5 Total Bilirubin 0.40 AST 31 ALT 12 Alkaline Phosphatase 117 Serum Total Protein 6.7 Albumin 3.3 L Orders (Last 24 hours) Category Date Time Status Clear Liquid Diet 07/21/20 Lunch Active CBC AM.LAB Lab 07/21/20 05:00 Completed CMP AM.LAB Lab 07/21/20 05:00 Completed Patient Care Notes (Last 24 hours) 07/21/20 12:42 Case Management Note by Ivy Patel [facility] CALLED AND REQUESTED IMAGES BE UPLOADED TO THE CLOUD- RADIOLOGY NOTIFIED Initialized on 07/21/20 12:42 - END OF NOTE 07/21/20 12:35 Case Management Note by Ivy Patel D/T PATIENT NEEDING MRCP AND GI SPECIALIST AND [facility] UNABLE TO DO MRCP. DR. GUZMAN WOULD LIKE PATIENT TO TRANSFER PATIENT TO [facility] FOR MRCP. S/[facility]- THEY DO NOT HAVE GI SPECIALITY COVERAGE AND WILL NOT TAKE PATIENT. [facility] DOES NOT HAVE ANY MED SURG BEDS AVAILABLE. S/W - THEY HAVE BEDS AVAILABLE ON CASE BY CASE BASIS- INFORMATION GIVEN TO CALL CENTER. THEY WILL HAVE THEIR PHYSICIAN CALL DR. GUZMAN. DR. GUZMAN UPDATED THAT THE [facility] IS TAKING PATIENTS ON A CASE TO CASE BASIS AND THEY WILL BE CALLING HIM- HE VERIFIED UNDERSTANDING. Initialized on 07/21/20 12:35 - END OF NOTE 07/21/20 12:11 Case Management Note by Ivy Patel PATIENT CONTINUES TO DENY ANY NEEDS REGARDING DC AT THIS TIME Initialized on 07/21/20 12:11 - END OF NOTE 07/20/20 23:34 Nursing Note by Re Blood pt IV went bad, hand edematous, and sore, IV removed, 5 sticks to obtain new IV, 5-20ga, 2 -IV start kits, and 1 -j loop Iv successfully inserted in left AC. Initialized on 07/20/20 23:34 - END OF NOTE Dr Ba accepted patient at [facility]. Will transfer patient. - Vitals & Intake/Output Vital Signs: Vital Signs Temperature 96.6 F 07/21/20 16:00 Pulse Rate 93 H 07/21/20 16:00 Respiratory Rate 17 07/21/20 16:00 Blood Pressure 142/75 07/21/20 16:00 O2 Sat by Pulse Oximetry 98 07/21/20 16:00 Intake & Output: Intake & Output 07/19/20 07/20/20 07/21/20 07/22/20 11:59 11:59 11:59 11:59 Intake Total 4396 3484 3246 1771 Output Total 1999 2900 750 Balance 2396 584 2496 1771 Weight 92.4 kg - Lab Result Diagrams: 07/21/20 05:00 07/21/20 05:00 Lab Results-Last 24 Hrs: Lab Results-Last 24 Hours 07/21/20 07/21/20 Range/Units 05:00 05:00 WBC 18.3 H (4.0-10.5) K/mm3 RBC 2.97 L (4.1-5.4) M/mm3 Hgb 8.8 L (12.0-16.0) gm/dl Hct 28.1 L (35-47) % MCV 94.6 (78-100) fl MCH 29.6 (26-32) pg MCHC 31.3 L (32-36) g/dl RDW 15.2 H (11.5-14.0) % Plt Count 337 (150-450) K/mm3 MPV 9.7 (7.5-11.0) fl Sodium 134 L (137-145) mmol/L Potassium 3.5 (3.5-5.1) mmol/L Chloride 109 H (98-107) mmol/L Carbon Dioxide 17 L (22-30) mmol/L Anion Gap 12.2 (5-15) MEQ/L BUN 5 L (7-17) mg/dL Creatinine 0.41 L (0.52-1.04) mg/dL Estimated GFR > 60.0 ML/MIN Glucose 114 H (74-106) mg/dL Calcium 8.5 (8.4-10.2) mg/dL Total Bilirubin 0.40 (0.2-1.3) mg/dL AST 31 (14-36) U/L ALT 12 (0-35) U/L Alkaline Phosphatase 117 (38-126) U/L Serum Total Protein 6.7 (6.3-8.2) g/dL Albumin 3.3 L (3.5-5.0) g/dL - Procedures and Test Procedures and Tests throughout Hospitalization: Therapy Orders & Screens 07/17/20 17:24 Smoking Cessation Education ONCE Comment: Diagnosis: pancreatitis Smoking Status: Light tobacco smoker How long have you smoked: +20 Have you smoked in the past 12 months: Yes Do you dip or chew tobacco: No If,Former Smoker,when did you quit: 7 years ago 07/17/20 18:57 RT Miscellaneous Order ROUTINE Comment: Physician Instructions: Reason For Exam: Diagnosis: pancreatitis 07/18/20 23:43 Oxygen Nasal Cannula 2 lpm Comment: Diagnosis: ACUTE PANCREATITIS Discharge Exam General Appearance: no apparent distress, alert Neurologic Exam: alert, oriented x 3, cooperative, normal mood/affect, nml cerebellar function, sensation nml, No motor deficits Eye Exam: PERRL, EOMI, eyes nml inspection Ears, Nose, Throat Exam: normal ENT inspection, pharynx normal, moist mucous membranes Neck Exam: normal inspection, non-tender, supple, full range of motion Respiratory Exam: normal breath sounds, lungs clear, No respiratory distress Cardiovascular Exam: regular rate/rhythm, normal heart sounds Gastrointestinal/Abdomen Exam: soft, tenderness, No mass Pelvic Exam: deferred Rectal Exam: deferred Back Exam: normal inspection, normal range of motion, No CVA tenderness, No vert ebral tenderness Extremity Exam: normal inspection, normal range of motion Skin Exam: normal color, warm, dry Final Diagnosis/Problem List - Final Discharge Diagnosis/Problem (1) Pancreatitis Current Visit: Yes Status: Acute Assessment & Plan: Abnormal Lab Results 07/21/20 07/21/20 Range/Units 05:00 05:00 WBC 18.3 H (4.0-10.5) K/mm3 RBC 2.97 L (4.1-5.4) M/mm3 Hgb 8.8 L (12.0-16.0) gm/dl Hct 28.1 L (35-47) % MCHC 31.3 L (32-36) g/dl RDW 15.2 H (11.5-14.0) % Sodium 134 L (137-145) mmol/L Chloride 109 H (98-107) mmol/L Carbon Dioxide 17 L (22-30) mmol/L BUN 5 L (7-17) mg/dL Creatinine 0.41 L (0.52-1.04) mg/dL Glucose 114 H (74-106) mg/dL Albumin 3.3 L (3.5-5.0) g/dL Will transfer patient to [facility] for further management. Code(s): K85.90 - ACUTE PANCREATITIS WITHOUT NECROSIS OR INFECTION, UNSP - Discharge Discharge Date: 07/21/20 Disposition: DC TO OTHER HOSP Condition: Stable Prescriptions: No Action Tizanidine HCl 4 mg [Zanaflex 4 MG] 3 tab PO QHS Metoprolol Tartrate 1 tab PO BID Quetiapine Fumarate [Seroquel Xr] 1 tab PO QHS Esomeprazole Magnesium [Nexium] 1 tab PO QPM Ergocalciferol (Vitamin D2) [Vitamin D] 1 tab PO UD Levothyroxine Sodium [Tirosint] 200 mcg PO DAILY Liothyronine Sodium 5 mcg PO DAILY Mupirocin [Bactroban OINTMENT] 0 gm TOP BID PRN PRN Reason: Redness/Irritation Follow up with: NADEEM GUZMAN MD [Primary Care Provider] -
[2020-07-21] MEDS: Zanaflex 4 MG PO SCH (21:29)
[2020-07-21] MEDS: Protonix 40MG Tablet PO SCH (21:29)
[2020-07-21] MEDS: Seroquel 100 MG PO SCH (21:29)
[2020-07-22] MEDS: Merrem 1 GM 1 G in Sodium Chloride 100ML MINI-BAG PLUS 100 ML IV SCH (05:12)
[2020-07-22] MEDS: Morphine PCA 1 MG/ML 30 ML IV PRN ×2 (05:25→11:00)
[2020-07-22 09:00] VITALS: BP 130/70; PULSE 80; O2SAT 98
[2020-07-22] MEDS: ROCEPHIN 1 Gm-D5w 50 ml Bag** 1 G/50 ML IVPB IV SCH (09:39)
[2020-07-22] MEDS: VITAMIN D2 PO SCH (09:40)
[2020-07-22] MEDS: Lopressor 25MG Tab PO SCH (09:40)
[2020-07-22] MEDS: SYNTHROID 100 MCG PO SCH (09:43)
--- NOTE | 2020-07-22 11:09 | PCM.NOTE ---
Date and Time: 07/22/20 1108 Subjective Assessment: unable to transfer patient last night due to unavailability of ambulance service - Review of Systems Constitutional: No Fever, No Chills Eyes: No Symptoms Ears, Nose, & Throat: No Symptoms Respiratory: No Cough, No Short Of Breath Cardiac: No Chest Pain, No Edema, No Syncope Abdominal/Gastrointestinal: No Abdominal Pain, No Nausea, No Vomiting, No Diarrhea Genitourinary Symptoms: No Dysuria Musculoskeletal: No Back Pain, No Neck Pain Skin: No Rash Neurological: No Dizziness, No Focal Weakness, No Sensory Changes Psychological: No Symptoms Endocrine: No Symptoms Hematologic/Lymphatic: No Symptoms Immunological/Allergic: No Symptoms Objective Exam General Appearance: no apparent distress, alert Neurologic Exam: alert, oriented x 3, cooperative, normal mood/affect, nml cerebellar function, sensation nml, No motor deficits Skin Exam: normal color, warm, dry Eye Exam: PERRL, EOMI, eyes nml inspection Ears, Nose, Throat Exam: normal ENT inspection, pharynx normal, moist mucous membranes Neck Exam: normal inspection, non-tender, supple, full range of motion Respiratory Exam: normal breath sounds, lungs clear, No respiratory distress Cardiovascular Exam: regular rate/rhythm, normal heart sounds Gastrointestinal/Abdomen Exam: soft, No tenderness, No mass Extremity Exam: normal inspection, normal range of motion Back Exam: normal inspection, normal range of motion, No CVA tenderness, No vertebral tenderness Pelvic Exam: deferred Rectal Exam: deferred OBJECTIVE DATA Vital Signs: Vital Signs - 24 hr Temp Pulse Resp BP Pulse Ox 07/22/20 08:00 98.1 F 80 18 130/70 98 07/22/20 06:00 20 07/22/20 05:45 96 07/22/20 05:25 98 07/22/20 04:00 97.8 F 93 H 20 134/66 98 07/22/20 00:00 97.9 F 84 20 123/71 98 07/21/20 21:45 97 07/21/20 20:00 96.2 F 92 H 20 132/62 92 L 07/21/20 18:00 17 07/21/20 16:00 96.6 F 93 H 17 142/75 98 07/21/20 13:13 95 07/21/20 12:00 97.1 F 94 H 17 137/80 99 Pain Assessment - Last Documented Pain Intensity 3 Pain Scale Used 0-10 Pain Scale Intake and Output: Intake & Output 07/19/20 07/20/20 07/21/20 07/22/20 11:59 11:59 11:59 11:59 Intake Total 4396 3484 3246 5412 Output Total 1999 2900 750 1550 Balance 2396 584 2496 3862 Weight 92.4 kg Multi-Disciplinary Progress Notes: Multi-Disciplinary Progress Notes 07/21/20 12:42 Case Management Note by Ivy Patel [facility] CALLED AND REQUESTED IMAGES BE UPLOADED TO THE CLOUD- RADIOLOGY NOTIFIED Initialized on 07/21/20 12:42 - END OF NOTE 07/21/20 12:35 Case Management Note by Ivy Patel D/T PATIENT NEEDING MRCP AND GI SPECIALIST AND [facility] UNABLE TO DO MRCP. DR. GUZMAN WOULD LIKE PATIENT TO TRANSFER PATIENT TO [facility] FOR MRCP. S/[facility]- THEY DO NOT HAVE GI SPECIALITY COVERAGE AND WILL NOT TAKE PATIENT. [facility] DOES NOT HAVE ANY MED SURG BEDS AVAILABLE. S/W - THEY HAVE BEDS AVAILABLE ON CASE BY CASE BASIS- INFORMATION GIVEN TO CALL CENTER. THEY WILL HAVE THEIR PHYSICIAN CALL DR. GUZMAN. DR. GUZMAN UPDATED THAT [facility] IS TAKING PATIENTS ON A CASE TO CASE BASIS AND THEY WILL BE CALLING HIM- [facility]. Initialized on 07/21/20 12:35 - END OF NOTE 07/21/20 12:11 Case Management Note by Ivy Patel PATIENT CONTINUES TO DENY ANY NEEDS REGARDING DC AT THIS TIME Initialized on 07/21/20 12:11 - END OF NOTE Assessment/Plan (1) Pancreatitis Current Visit: Yes Status: Acute Qualifiers: Chronicity: acute Pancreatitis type: unspecified pancreatitis type Acute pancreatitis complication: no infection or necrosis Qualified Code(s): K85.90 - Acute pancreatitis without necrosis or infection, unspecified Assessment & Plan: awaiting transfer to [facility] Code(s): K85.90 - ACUTE PANCREATITIS WITHOUT NECROSIS OR INFECTION, UNSP
== END 2020-07-22 11:10 | DRG 440 ==
LOC: ED 11:16 → MED SURG 16:00 → OBSVTOIN 16:00
PROVIDERS: ADMIT General Practice; ATTEND General Practice
DX: K85.90 Acute pancreatitis without necrosis or infection, unspecified (principal); Z79.899 Other long term (current) drug therapy; E03.9 Hypothyroidism, unspecified; E87.6 Hypokalemia
CPT/HCPCS: 36000; 36415; 74177; 80053; 81001; 82150; 83690; 84132; 85025; 85027; 85379; 94760; 94762; 96374; 96375; 99285; J0696; J1170; J1885; J2270; J2405; J3010; J3480; U0003; A9270-GY

== ENCOUNTER 2023-03-03 07:10 | Day surgery (SDC) | payer OTHER ==
[2023-03-03] MEDS ORDERED: Depo-Medrol 40 MG/ML IM ONE (07:11)
[2023-03-03] MEDS ORDERED: Sodium Chloride 0.9(Preservative Free) 10 ML IJ ONE (07:11)
[2023-03-03 07:21] LABS: HCG URINE TEST NEGATIVE (NEGATIVE)
[2023-03-03] MEDS ORDERED: DIPRIVAN 200 MG/20 ML IV ONE ×2 (08:27→08:33)
[2023-03-03] MEDS ORDERED: Lactated Ringers 1,000 ML IV ONE (09:25)
--- NOTE | 2023-03-03 10:24 | XRAY ---
Indication: Right L4-[id number] MARAL. Intraoperative fluoroscopy provided for 35 seconds. 4 digital spot image submitted for interpretation demonstrates posterior needle tips projecting over the expected right L4 and L5 nerve roots. Small amount of contrast injected for needle tip placement. Correlate with intraoperative findings/report.
--- NOTE | 2023-03-03 10:30 | XRAY ---
35 seconds of fluoroscopy was used in surgery for a right L4-S1 transforaminal MARAL.
== END 2023-03-03 08:56 | disposition home or self-care (01) ==
LOC: SDC-PAIN 07:10
PROVIDERS: ATTEND Psychiatry & Neurology Pain Medicine
DX: M54.16 Radiculopathy, lumbar region (principal); Z79.899 Other long term (current) drug therapy
CPT/HCPCS: 64483; 64484; 72100; 77003; 81025; 82947; J1030; J2704; Q9966

== ENCOUNTER 2025-03-07 06:55 | Day surgery (SDC) | payer OTHER ==
[2025-03-07] MEDS ORDERED: Sodium Chloride 0.9(Preservative Free) 10 ML IJ ONE (06:56)
[2025-03-07] MEDS ORDERED: Depo-Medrol 40 MG/ML IM ONE (06:56)
[2025-03-07 07:08] LABS: HCG URINE TEST NEGATIVE (NEGATIVE)
[2025-03-07] MEDS ORDERED: propofoL IV ONE (08:37)
--- NOTE | 2025-03-07 10:36 | XRAY ---
14 seconds of fluoroscopy was used in surgery for a caudal MARAL.
--- NOTE | 2025-03-07 10:36 | XRAY ---
Indication: Caudal MARAL. Intraoperative fluoroscopy provided for 14 seconds. 4 digital spot images submitted for interpretation demonstrates caudal needle tip projecting mid sacrum. Small amount of contrast injected for needle tip placement. Correlate with intraoperative findings/report.
[2025-03-07] MEDS ORDERED: Lactated Ringers 1,000 ML IV ONE (12:15)
== END 2025-03-07 09:03 | disposition home or self-care (01) ==
LOC: SDC-PAIN 06:55
PROVIDERS: ATTEND Psychiatry & Neurology Pain Medicine
DX: M54.16 Radiculopathy, lumbar region (principal); E11.9 Type 2 diabetes mellitus without complications